=== PATIENT | female | born 1960 | race Caucasian/White ===

== ENCOUNTER 2023-04-22 00:14 | Emergency (ER) | payer BC ==
--- OUTSIDE RECORDS SUMMARY | 2023-04-22 00:17 | XMS REPORT | Continuity of Care Document ---
:1960 Author Organization [facility] t Address [address] [place] [address] Care Team Providers Name Role Phone LEDA HADDAD Attending Clinician Unavailable Payers Payer Name Policy Type Policy Number Effective Date Expiration Date S dahiana BLUE [employer]ENTIALS [id number] 2020 00:00:00 Problems This patient has no known problems. Allergies, Adverse Reactions, Alerts Allergy Allergy Status Severity Reaction(s) Onset Inactive Treating Comm ents Source Name Type Date Date Clinician NO KNOWN Drug Active [facility] ALLERGIE Class ity [facility] Medications This patient has no known medications. Procedures This patient has no known procedures. Encounters Start End Encounter Admission Attending Care Care Encounter Source Date/Time Date/Time Type Type Clinicians Facility Department ID 2020-11-02 2020-11-02 Outpatient Ronny HADDAD [facility] [id number] Univers 15:10:00 15:10:00 LEDA [id number] [facility] 2020-11-02 2020-11-02 Outpatient Ronny HADDAD [facility] [id number] Univers 15:10:00 15:10:00 LEDA [facility] 2020-10-26 2020-10-26 Outpatient R BOO [facility] [id number] Univers 15:10:00 15:10:00 LEDA [id number] [facility] 2020-10-25 2020-10-25 Outpatient Ronny HADDAD [facility] [id number] Univers 16:10:00 16:10:00 LEDA [id number] [facility] 2020-10-23 2020-10-23 Outpatient R BOO [facility] [id number] Univers 16:20:00 16:20:00 LEDA [id number] [facility] 2020-10-02 2020-10-02 Outpatient Ronny HADDAD [facility] [id number] Univers 14:30:00 14:30:00 LEDA [id number] [facility] 2020-10-02 2020-10-02 Outpatient Rnony HADDAD [facility] [id number] Univers 14:30:00 14:30:00 LEDA [facility] Results This patient has no known results.
[2023-04-22] MEDS ORDERED: HYDROCODONE/APAP 7.5/325 MG TAB ONE (01:50)
[2023-04-22] MEDS ORDERED: TDAP (DIPHTH,PERTUSS(ACELL),TET VAC) 0.5 ML VIAL IMVAC ONE (01:52)
--- NOTE | 2023-04-22 01:54 | EDPHYS ---
Physician Documentation [facility] Name: Chata Brar Age: 62 yrs Sex: Female : 1960 Arrival Date: 04/22/2023 Time: 00:14 Bed 15 Private MD: ED Physician Miky Sexton HPI: 04/22 01:41 This 62 yrs old Female presents to ER via Ambulatory with complaints of Laceration To kb Head. 01:41 The patient has a laceration related to: falling occurred at home. The laceration(s) kb is(are) located on the occipital area. 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 Associated signs and symptoms: Pertinent positives: heavy bleeding, Pertinent negatives: deformity, dizziness, loss of consciousness, numbness distal to injury, suspected foreign body. The patient has not experienced similar symptoms in the past. The patient has not recently seen a physician. Pt reports she was standing on a chair trying to remove a cobbwebb from the ceiling, fell and hit head on a chair. Denies loc. Historical: - Allergies: 00:37 No Known Allergies; vc1 - Home Meds: 01:08 alprazolam 0.5 mg Oral tablet 3 times per day [Active]; escitalopram oxalate 20 mg oral lg3 tablet daily [Active]; valsartan 320 mg oral tablet daily [Active]; carvedilol 25 mg oral tablet 2 times per day [Active]; metformin 500 mg Oral tablet 2 times per day [Active]; - PMHx: 01:08 HTN; Anxiety; pre diabetes; lg3 - PSHx: 01:08 section; Ligation of fallopian tube; lg3 - Immunization history:: Adult Immunizations up to date, Client reports receiving the 2nd dose of the Covid vaccine. - Social history:: Smoking status: Patient reports the use of cigarette tobacco products, smokes one-half pack cigarettes per day, Patient/guardian denies using alcohol, street drugs. ROS: 01:38 Constitutional: Negative for fever, chills, and weight loss. kb 01:38 Skin: Positive for laceration(s), of the occipital area. 01:38 All other systems are negative. Exam: 01:38 Constitutional: This is a well developed, well nourished patient who is awake, alert, kb and in no acute distress. Eyes: Pupils equal round and reactive to light, extra-ocular motions intact. Lids and lashes normal. Conjunctiva and sclera are non-icteric and not injected. Cornea within normal limits. Periorbital areas with no swelling, redness, or edema. ENT: Moist Mucous membranes Cardiovascular: Regular rate and rhythm with a normal S1 and S2. No gallops, murmurs, or rubs. No pulse deficits. Respiratory: Respirations even and unlabored. No increased work of breathing. Talking in full sentences Skin: Warm, dry with normal turgor. Normal color. MS/ Extremity: Pulses equal, no cyanosis. Neurovascular intact. Full, normal range of motion. Neuro: Awake and alert, GCS 15, oriented to person, place, time, and situation. Moves all extremities. Normal gait. 01:38 Head/face: Noted is no obvious of injury or deformity except a laceration(s), that is superficial, 5 cm(s), of the occipital area. Vital Signs: 00:33 BP 189 / 135; Pulse 88; Resp 19 S; Temp 98.5(O); Pulse Ox 98% on R/A; Weight 99.79 kg vc1 (R); Height 5 ft. 8 in. (R); 00:33 Weight 99.79 kg; Height 5 ft. 8 in. ; Pain 10/10; vc1 01:16 BP 163 / 94; Pulse 80; Resp 19 S; Pulse Ox 99% on R/A; lg3 00:33 Body Mass Index 33.45 (99.79 kg, 172.72 cm) vc1 00:33 Pain Scale: Adult vc1 Laceration: 01:40 Wound Repair of 5cm ( 2.0in ) subcutaneous laceration to occipital area. Linear kb shaped.. Distal neuro/vascular/tendon intact. Anesthesia: Wound infiltrated with 10 mls of 1% lidocaine w/ Epi. Wound prep: Extensive cleansing with hibiclenz by me, Wound irrigation with saline by me. Skin closed with 9 3-0 Prolene using simple sutures and sterile technique. Patient tolerated well. MDM: 00:22 Patient medically screened. kb 01:40 Data reviewed: vital signs, nurses notes. kb 01:41 Differential diagnosis: superficial laceration, tendon injury, vascular injury, ICH, kb concussion. Counseling: I had a detailed discussion with the patient and/or guardian regarding: the historical points, exam findings, and any diagnostic results supporting the discharge/admit diagnosis, radiology results, the need for outpatient follow up, a family practitioner, to return to the emergency department if symptoms worsen or persist or if there are any questions or concerns that arise at home. 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 lg3 Exp: 09/24/2023. Lot #: [id number]. } Route: IM; Site: right deltoid; 01:46 Follow up: Response: (VIS) Vaccine information sheet provided today. Questions and/or lg3 concerns addressed. VIS edition date: Apr 12, 2021.; No adverse reaction 01:45 Drug: Hydrocodone-Acetaminophen PO (7.5 mg-325 mg) 1 tabs Route: PO; lg3 Disposition: 03:00 Co-signature as Attending Physician, Miky Sexton MD I agree with the assessment sp4 and plan of care. I reviewed the patient's care provided by Advanced Practice Provider \T\ agree w/ the diagnosis \T\ care plan. I personally saw the pt \T\ performed a substantive portion of the visit, incldng all aspects of the (History/Exam/Medical Decision Making). Disposition Summary: 04/22/23 01:54 Discharge Ordered Location: Home kb Condition: Stable kb Diagnosis - Unspecified injury of head, initial encounter kb - Laceration without foreign body of unspecified part of head kb Followup: kb - With: Emergency Department - When: As needed - Reason: Worsening of condition Followup: kb - With: Private Physician - When: 2 - 3 days - Reason: Recheck today's complaints, Continuance of care, Re-evaluation by your physician Discharge Instructions: - Discharge Summary Sheet kb - Laceration Care, Adult, [id number] kb - Head Injury, Adult, [id number] kb Forms: - Medication Reconciliation Form kb - Thank You Letter kb - Antibiotic Education kb - Prescription Opioid Use kb - Patient Portal Instructions kb - Leadership Thank You Letter kb Signatures: Dispatcher [employer] ED Keith Theresa, CLIENT PROFESSIONAL-C CLIENT PROFESSIONAL-Isaura Ferreira RN RN lg3 Adeola Briones RN RN vc1 Miky Sexton MD MD sp4 Corrections: (The following items were deleted from the chart) 00:37 00:37 Home Meds: None; vc1 vc1 01:12 01:00 Immunization history: Adult Immunizations up to date, Client reports receiving lg3 the 2nd dose of the Covid vaccine, lg3 01:12 01:00 Social history: Smoking status: Patient reports the use of cigarette tobacco lg3 products, smokes one-half pack cigarettes per day, Patient/guardian denies using alcohol, street drugs, lg3
--- NOTE | 2023-04-22 01:54 | ER ---
Nurse's Notes [facility] Name: Chata Brar Age: 62 yrs Sex: Female : 1960 Arrival Date: 04/22/2023 Time: 00:14 Bed 15 Private MD: Diagnosis: Unspecified injury of head, initial encounter;Laceration without foreign body of unspecified part of head Presentation: 04/22 00:33 Chief complaint: Patient states: I was standing on a chair trying to dust the vent and vc1 I fell backwards and hit my head on the table. Coronavirus screen: Vaccine status: Patient reports receiving the 2nd dose of the covid vaccine. Plus 2 boosters Client denies travel out of the [place] in the last 14 days. At this time, the client does not indicate any symptoms associated with coronavirus-19. 00:33 Method Of Arrival: Ambulatory vc1 00:33 Acuity: SUE 3 vc1 00:33 Acuity: SUE 2 vc1 00:33 Ebola Screen: Patient negative for fever greater than or equal to 101.5 degrees vc1 Fahrenheit, and additional compatible Ebola Virus Disease symptoms Patient denies exposure to infectious person. Patient denies travel to an Ebola-affected area in the 21 days before illness onset. Complicating Factors: There are no complicating factors for this patient. Initial Sepsis Screen:. Risk Assessment: Do you want to hurt yourself or someone else? Patient reports no desire to harm self or others. Onset of symptoms was April 22, 2023. 00:33 Ebola Screen: No symptoms or risks identified at this time. Complicating Factors: lg3 arterial bleed. Initial Sepsis Screen: Does the patient meet any 2 criteria? No. Patient's initial sepsis screen is negative. Does the patient have a suspected source of infection? No. Patient's initial sepsis screen is negative. Risk Assessment: Do you want to hurt yourself or someone else? Patient reports no desire to harm self or others. Onset of symptoms was April 22, 2023. Triage Assessment: 00:33 General: Appears distressed, uncomfortable, Behavior is calm, cooperative. Pain: lg3 Complains of pain in scalp Pain currently is 5 out of 10 on a pain scale. EENT: No deficits noted. No signs and/or symptoms were reported regarding the EENT system. Neuro: No deficits noted. Garcia Agitation-Sedation Scale (RASS): 0 - Alert and Calm Level of Consciousness is awake, alert, obeys commands, Oriented to person, place, time, situation, Reports headache. Respiratory: No deficits noted. Airway is patent Respiratory effort is even, unlabored, Respiratory pattern is regular, symmetrical. GI: No deficits noted. No signs and/or symptoms were reported involving the gastrointestinal system. Abdomen is round non-distended, obese. : No deficits noted. No signs and/or symptoms were reported regarding the genitourinary system. Derm: Skin is intact, is healthy with good turgor, Skin is dry, Skin is normal, Wound noted scalp. Musculoskeletal: No deficits noted. No signs and/or symptoms reported regarding the musculoskeletal system. Circulation, motion, and sensation intact. Range of motion: intact in all extremities. Injury Description: Laceration sustained to scalp is clean, 2.6 to 7.5 cm long, bleeding profusely, with pulsatile bleeding, is bleeding profusely. 00:33 Cardiovascular: No deficits noted. Denies chest pain, shortness of breath, Capillary lg3 refill < 3 seconds Clubbing of nail beds is absent JVD is absent Patient's skin is warm and dry. Historical: - Allergies: 00:37 No Known Allergies; vc1 - Home Meds: 01:08 alprazolam 0.5 mg Oral tablet 3 times per day [Active]; escitalopram oxalate 20 mg oral lg3 tablet daily [Active]; valsartan 320 mg oral tablet daily [Active]; carvedilol 25 mg oral tablet 2 times per day [Active]; metformin 500 mg Oral tablet 2 times per day [Active]; - PMHx: 01:08 HTN; Anxiety; pre diabetes; lg3 - PSHx: 01:08 section; Ligation of fallopian tube; lg3 - Immunization history:: Adult Immunizations up to date, Client reports receiving the 2nd dose of the Covid vaccine. - Social history:: Smoking status: Patient reports the use of cigarette tobacco products, smokes one-half pack cigarettes per day, Patient/guardian denies using alcohol, street drugs. Screenin:25 [facility] ED Fall Risk Assessment (Adult) History of falling in the last 3 months, vc1 including since admission Yes- single mechanical fall (1 pt) Confusion or Disorientation No (0 pts) Intoxicated or Sedated No (0 pts) Impaired Gait No (0 pts) Mobility Assist Device Used No (0 pt) Altered Elimination No (0 pt) Score/Fall Risk Level 0 - 2 = Low Risk Oriented to surroundings, Maintained a safe environment, Educated pt \T\ family on fall prevention, incl call for assistance when getting out of bed. Abuse screen: Denies threats or abuse. Nutritional screening: No deficits noted. Tuberculosis screening: No symptoms or risk factors identified. Assessment: 01:04 General: see triage assessment . lg3 01:07 General: pt to CT at this time . lg3 01:13 Reassessment: Patient appears in no apparent distress at this time. Patient states lg3 feeling better. Patient states symptoms have improved. Pain: Complains of pain in scalp. Neuro: No deficits noted. Garcia Agitation-Sedation Scale (RASS): 0 - Alert and Calm Level of Consciousness is awake, alert, obeys commands, Oriented to person, place, time, situation. Vital Signs: 00:33 BP 189 / 135; Pulse 88; Resp 19 S; Temp 98.5(O); Pulse Ox 98% on R/A; Weight 99.79 kg vc1 (R); Height 5 ft. 8 in. (R); 00:33 Weight 99.79 kg; Height 5 ft. 8 in. ; Pain 10/10; vc1 01:16 BP 163 / 94; Pulse 80; Resp 19 S; Pulse Ox 99% on R/A; lg3 00:33 Body Mass Index 33.45 (99.79 kg, 172.72 cm) vc1 00:33 Pain Scale: Adult vc1 ED Course: 00:22 Patient arrived in ED. kb 00:22 Theresa Parker FNP-C is PHCP. kb 00:22 Miky Sexton MD is Attending Physician. kb 00:33 Arm band placed on left wrist. vc1 00:33 Patient has correct armband on for positive identification. Placed in gown. Bed in low vc1 position. 00:56 Isaura Brewer, VERONICA is Primary Nurse. lg3 01:02 Triage completed. lg3 01:04 Assist provider with laceration repair on scalp that was between 2.6 to 7.5 cm using lg3 sutures. Set up tray. Performed by Theresa CASTILLO Patient tolerated well. Patient maintains SpO2 saturation greater than 95% on room air. 01:20 CT Head C Spine In Process Unspecified. EDMS 02:13 Provided Education on: suture care. vc1 02:13 Patient did not have IV access during this emergency room visit. 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 lg3 Exp: 09/24/2023. Lot #: [id number]. } Route: IM; Site: right deltoid; 01:46 Follow up: Response: (VIS) Vaccine information sheet provided today. Questions and/or lg3 concerns addressed. VIS edition date: Apr 12, 2021.; No adverse reaction 01:45 Drug: Hydrocodone-Acetaminophen PO (7.5 mg-325 mg) 1 tabs Route: PO; lg3 Medication: 01:46 Vaccine Information Statement (VIS) provided today. Questions and/or concerns lg3 addressed. VIS edition date: April 12, 2021. Outcome: 01:54 Discharge ordered by . mickey 02:11 Discharged to home ambulatory. vc1 02:11 Condition: good 02:11 Discharge instructions given to patient, Instructed on discharge instructions, follow up and referral plans. wound care, Demonstrated understanding of instructions, follow-up care, wound care. 02:14 Patient left the ED. vc1 Signatures: Dispatcher [employer] EDWY Theresa Parker FNP-C FNP-Isaura Ferreira RN RN lg3 Adeola Briones RN RN vc1 Corrections: (The following items were deleted from the chart) 00:37 00:37 Home Meds: None; vc1 vc1 01:03 01:00 BP 189 / 135; Pulse 88bpm; Resp 19bpm; Spontaneous; Pulse Ox 98% RA; Temp 98.5F vc1 Oral; 99.79 kg Reported; Height 5 ft. 8 in. Reported; BMI: 33.4; lg3 : 01:00 Acuity: SUE 3 lg3 vc1 01:07 01:00 Ebola Screen: No symptoms or risks identified at this time. lg3 lg3 Complicating Factors: arterial bleed lg3 lg3 : Initial Sepsis Screen: Does the patient meet any 2 criteria? No. Patient's lg3 initial sepsis screen is negative. Does the patient have a suspected source of infection? No. Patient's initial sepsis screen is negative. lg3 : Risk Assessment: Do you want to hurt yourself or someone else? Patient reports no lg3 desire to harm self or others. lg3 : Onset of symptoms was April 22, 2023 lg3 lg3 : Immunization history: Adult Immunizations up to date, Client reports receiving lg3 the 2nd dose of the Covid vaccine, lg3 Social history: Smoking status: Patient reports the use of cigarette tobacco lg3 products, smokes one-half pack cigarettes per day, Patient/guardian denies using alcohol, street drugs, lg3 : General: Appears distressed, uncomfortable, Behavior is calm, cooperative, lg3 lg3 : Pain: Complains of pain in scalp Pain currently is 5 out of 10 on a pain scale. lg3 lg3 : EENT: No deficits noted. No signs and/or symptoms were reported regarding the lg3 EENT system. lg3 : Neuro: No deficits noted. Garcia Agitation-Sedation Scale (RASS): 0 - Alert and lg3 Calm Level of Consciousness is awake, alert, obeys commands, Oriented to person, place, time, situation, Reports headache lg3 : Cardiovascular: No deficits noted. Denies chest pain, shortness of breath, lg3 Capillary refill < 3 seconds Clubbing of nail beds is absent JVD is absent Patient's skin is warm and dry. lg3 : Respiratory: No deficits noted. Airway is patent Respiratory effort is even, lg3 unlabored, Respiratory pattern is regular, symmetrical, lg3 GI: No deficits noted. No signs and/or symptoms were reported involving the lg3 gastrointestinal system. Abdomen is round non-distended, obese, lg3 : : No deficits noted. No signs and/or symptoms were reported regarding the lg3 genitourinary system. lg3 : Derm: Skin is intact, is healthy with good turgor, Skin is dry, Skin is normal, lg3 Wound noted scalp lg3 :00 Musculoskeletal: No deficits noted. No signs and/or symptoms reported regarding lg3 the musculoskeletal system. Circulation, motion, and sensation intact. Range of motion: intact in all extremities, lg3 : Injury Description: Laceration sustained to scalp is clean, 2.6 to 7.5 cm long, lg3 bleeding profusely, with pulsatile bleeding, is bleeding profusely lg3
[2023-04-22 02:29] VITALS: TEMP 98.5
[2023-04-22 02:31] VITALS: BP 163/94; O2SAT 99
--- NOTE | 2023-04-22 12:10 | RAD REPORT ---
EXAM DESCRIPTION: CT - Head C Spine Mpr Wo Con - 04/22/2023 7:07 am CLINICAL HISTORY: TRAUMA TECHNIQUE: Contiguous axial CT images obtained through the brain without IV contrast. Coronal and sa gittal reformatted images were provided. This exam was performed according to our departmental dose-optimization program, which includes autom ated exposure control, adjustment of the mA and/or kV according to patient size and/or use of iterati ve reconstruction technique. COMPARISON: None available for comparison FINDINGS: Brain: Mild chronic white matter ischemic changes.. No focal mass effect. Shine-white matte r differentiation is within normal limits. No hemorrhage. Ventricles: No ventriculomegaly or midline shift. Extra-axial spaces: No extra-axial collection or hemorrhage. Paranasal sinuses and mastoid air cells: Well-aerated Bones: Unremarkable Soft tissues: Small posterior scalp hematoma and subcutaneous air likely secondary to laceration. IMPRESSION: No acute intracranial injury. Small posterior scalp hematoma and subcutaneous air likely secondary to laceration. EXAM DESCRIPTION: Head C Spine Mpr Wo Con CLINICAL HISTORY: TRAUMA TECHNIQUE: Contiguous axial CT images obtained through the cervical spine without IV contrast. Cor onal and sagittal reformatted images also provided. This exam was performed according to our departmental dose-optimization program, which includes autom ated exposure control, adjustment of the mA and/or kV according to patient size and/or use of iterati ve reconstruction technique. COMPARISON: None available for comparison FINDINGS: Vertebra: No acute fracture or subluxation. Degenerative changes: Degenerative changes of the cervical spine with facet joint arthropathy, mild n arrowing of intervertebral disc spaces, small disc osteophyte complexes and anterior osteophytes. Prevertebral soft tissues: Unremarkable Lung apices: Clear IMPRESSION: No acute cervical spine injury. Degenerative changes of the cervical spine. Electronically signed by: Angelito Valentin MD 04/22/2023 1:50 AM CDT Due to temporary technical issues with the PACS/Fluency reporting system, reports are being signed by the in house radiologist without review as a courtesy to ensure prompt reporting. The interpreting r adiologist is fully responsible for the content of the report.
== END 2023-04-22 02:14 | disposition home or self-care (01) ==
LOC: ER 00:14
PROC: 0HQ1XZZ Repair Face Skin, External Approach (ICD-10-PCS; principal; 2023-04-22)
DX: S01.81XA Laceration without foreign body of other part of head, initial encounter (principal); Z23 Encounter for immunization
CPT/HCPCS: 70450; 72125

== ENCOUNTER 2023-09-02 17:28 | Inpatient (IN) | payer BC ==
--- OUTSIDE RECORDS SUMMARY | 2023-09-02 17:30 | XMS REPORT | Continuity of Care Document ---
Author Name Unknown Address [address] [place] [address] 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 Role Phone LEDA HADDAD Attending Clinician Unavailable Payers Payer Name Policy Type Policy Number Effective Date Expirati on Date Source BLUE ESSENTIALS [id number] 2020 00:00:00 Allergies, Adverse Reactions, Alerts Allergy Name Allergy Type Status Severity Reaction(s) Onset Date Inactive Date Treating Clinician Comments Source NO KNOWN ALLERGIE S Drug Class Active [facility] Encounters Start Date/Time End Date/Time Encounter Type Admission Type Attending Clinicians Care Facility Care Department Encounter ID Source 2020-11-02 15:10:00 2020-11-02 15:10:00 Outpatient LEDA [facility] [id number] [facility] 2020-11-02 15:10:00 2020-11-02 15:10:00 Outpatient LEDA [facility] [id number] [facility] 2020-10-26 15:10:00 2020-10-26 15:10:00 Outpatient LEDA [facility] [id number] [facility] 2020-10-25 16:10:00 2020-10-25 16:10:00 Outpatient LEDA [facility] [id number] [facility] 2020-10-23 16:20:00 2020-10-23 16:20:00 Outpatient LEDA [facility] [id number] [facility] 2020-10-02 14:30:00 2020-10-02 14:30:00 Outpatient LEDA [facility] [id number] [facility] 2020-10-02 14:30:00 2020-10-02 14:30:00 Outpatient LEDA [facility] [id number] [facility]
[2023-09-02] MEDS ORDERED: NA CHLORIDE 0.9% 1,000 ML ONE ×3 (17:42→21:16)
[2023-09-02 18:04] LABS: Absolute Lymphocytes (CBC) 1.7 K/uL (0.7-4.9); Hematocrit 49.8 % (36.0-45.0); Lymphocytes % 14.7 % (15.3-44.8); MCV 90.5 fL (80-100); MPV 12.1 fL (7.6-11.3); Platelets 170 thou/uL (152-406)
--- NOTE | 2023-09-02 18:47 | RAD REPORT ---
EXAM DESCRIPTION: RAD - Chest Single View - 09/02/2023 6:40 pm CLINICAL HISTORY: PALPITATIONS Chest pain. COMPARISON: Chest Single View dated 08/25/2023; Chest Single View dated 08/21/2023 FINDINGS: Portable technique limits examination quality. The lungs are grossly clear. The heart is normal in size. No displaced fractures. IMPRESSION: No acute intrathoracic process suspected.
[2023-09-02 19:14] LABS: SARS-COV-2 RT PCR NEGATIVE (NEGATIVE)
[2023-09-02 19:33] LABS: Potassium 4.1 mEq/L (3.5-5.1); Thyroid Stimulating Hormone 3.46 uIU/mL (0.358-3.740)
[2023-09-02 19:38] LABS: Troponin High Sensitivity 61.8 pg/mL (<58.9)
--- NOTE | 2023-09-02 19:45 | EDPHYS ---
Physician Documentation [facility] Name: Chata Brar Age: 62 yrs Sex: Female : 1960 Arrival Date: 09/02/2023 Time: 17:28 Bed 4 Private MD: ED Physician Andre Cardenas HPI: 09/02 17:30 This 62 yrs old Female presents to ER via Unassigned with complaints of ec2 weakness, sob, afib. 17:30 Patient arrives today for evaluation of weakness and shortness of breath. Patient is ec2 having worsening shortness of breath, has a recent diagnosis of pneumonia. Patient had subsequently called EMS due to concern for progression of symptoms. EMS had evaluated the patient and noted her to be in A-fib with heart rates in the 140s, subsequently gave her diltiazem with improvement in symptoms. Initially was hypotensive and since improved after crystalloid administration.. Historical: - Allergies: 17:38 No Known Allergies; ph - Home Meds: 17:38 alprazolam 0.5 mg Oral tablet 3 times per day [Active]; carvedilol 25 mg Oral tablet 2 ph times per day [Active]; escitalopram oxalate 20 mg Oral tablet daily [Active]; metformin 500 mg Oral tablet 2 times per day [Active]; valsartan 320 mg Oral tablet daily [Active]; - PMHx: 17:38 Anxiety; HTN; Pre Diabetes; ph - PSHx: 17:38 section; Ligation of fallopian tube; ph - Immunization history:: Adult Immunizations unknown. - Social history:: Smoking status: Patient denies any tobacco usage or history of. ROS: 17:30 Constitutional: as per hpi ec2 Exam: 17:30 Constitutional: GEN: NAD Head: atraumatic Eyes: EOMI Ears: External ears are ec2 normal. CV: Intermittently tachycardic LUNGS: no respiratory distress, no wheezes, no rales, no rhonchi ABD: non-distended SKIN: no evidence of rashes MSK: no evidence of trauma NEURO: moves all extremities equally Vital Signs: 17:33 BP 88 / 41; Pulse 101; Resp 18; Temp 97.8; Pulse Ox 94% on R/A; ph 18:15 BP 105 / 52; Pulse 87; Resp 18; Pulse Ox 99% on 2 lpm NC; ph 18:30 BP 80 / 60; Pulse 98; Resp 20; Pulse Ox 98% on 2 lpm NC; ph 18:52 BP 90 / 48; Pulse 98; Resp 18; Pulse Ox 98% on 2 lpm NC; ph 19:25 BP 99 / 51; Pulse 104; Resp 17 S; Pulse Ox 98% on 2 lpm NC; ha1 19:46 BP 109 / 46; Pulse 83; ec2 20:00 BP 106 / 64; Pulse 102; Resp 18 S; Pulse Ox 99% on 2 lpm NC; ha1 20:50 BP 98 / 52; Pulse 99; Resp 18 S; Pulse Ox 98% on 2 lpm NC; ha1 21:15 BP 104 / 62; Pulse 102; Resp 17 S; Pulse Ox 97% on 2 lpm NC; ha1 21:15 BP 112 / 58; Pulse 103; Resp 17 S; Pulse Ox 98% on 2 lpm NC; ha1 MDM: 17:29 Patient medically screened. ec2 17:30 Data reviewed: vital signs. ED course: Patient arrives today due to concern for ec2 weakness, shortness of breath as well as atrial fibrillation. Examination remarkable for nontoxic but is otherwise in no acute distress with bouts of tachycardia secondary to her A-fib. Will obtain lab work, EKG, chest x-ray. Currently considering process such as electrolyte disturbances, arrhythmia, anemia, ACS.. 18:47 ED course: EKG independently reviewed and interpreted by me, shows atrial flutter, rate ec2 103 with variable conduction, no acute ST segment elevations, intervals are pertinent for QTc prolongation at 521 documented.. 19:17 ED course: Chest x-ray shows no acute thoracic process.. ec2 19:41 ED course: Metabolic profile with appropriate electrolytes, diminished renal function ec2 noted. Does have BNP elevation at greater than 7000. Troponin elevated at 61. Negative for COVID, does have influenza A. Will treat with Tamiflu. Will admit for patient's atrial fibrillation and influenza. Discussed case with hospitalist, pending admission. . 09/02 17:30 Order name: Basic Metabolic Panel; Complete Time: 19:40 ec2 09/02 17:30 Order name: CBC with Diff ec2 09/02 17:30 Order name: NT PRO-BNP; Complete Time: 19:40 ec2 09/02 17:30 Order name: Troponin HS; Complete Time: 19:40 ec2 09/02 17:30 Order name: TSH; Complete Time: 19:40 ec2 09/02 17:30 Order name: T4 Free; Complete Time: 19:40 ec2 09/02 17:30 Order name: COVID-19/FLU A+B/RSV; Complete Time: 19:41 ec2 09/02 18:13 Order name: CBC Smear Scan EDWI 09/02 20:44 Order name: NT PRO-BNP [facility]WI 09/02 20:44 Order name: Thyroid Stimulating Hormone [facility] 09/02 20:44 Order name: CBC with Automated Diff EDMS 09/02 20:44 Order name: CBC with Automated Diff EDMS 09/02 20:44 Order name: Comprehensive Metabolic Panel [facility] 09/02 20:44 Order name: Comprehensive Metabolic Panel [facility] 09/02 20:44 Order name: Lipid Profile [facility] 09/02 20:44 Order name: Lipid Profile [facility] 09/02 20:44 Order name: Magnesium [facility] 09/02 20:44 Order name: Magnesium [facility] 09/02 20:44 Order name: Phosphorus [facility] 09/02 20:44 Order name: Phosphorus [facility] 09/02 20:44 Order name: Troponin High Sensitivity [facility] 09/02 20:44 Order name: Troponin High Sensitivity [facility] 09/02 20:44 Order name: Troponin High Sensitivity [facility] 09/02 20:44 Order name: Urinalysis w/ reflexes [facility] 09/02 21:23 Order name: Glucose, Ancillary Testing [facility] 09/02 17:30 Order name: XRAY Chest (1 view); Complete Time: 19:17 2 09/02 17:30 Order name: EKG; Complete Time: 17:30 2 09/02 20:44 Order name: CONS Physician Consult [facility] 09/02 20:45 Order name: Patient Safety Orders [facility] 09/02 17:30 Order name: Cardiac monitoring; Complete Time: 17:39 ec2 09/02 17:30 Order name: EKG - Nurse/Tech; Complete Time: 18:22 ec2 09/02 17:30 Order name: IV Saline Lock; Complete Time: 17:39 ec2 09/02 17:30 Order name: Labs collected and sent; Complete Time: 18:22 ec2 09/02 17:30 Order name: O2 Per Protocol; Complete Time: 17:39 ec2 09/02 17:30 Order name: O2 Sat Monitoring; Complete Time: 17:39 ec2 09/02 18:10 Order name: Labs - recollect needed: green-hemolyzed; Complete Time: 18:55 iw Administered Medications: 17:55 Drug: NS 0.9% IV 1000 ml IV at 1 bolus Per protocol; 1000 mL bolus Route: IV; Rate: 1 ph bolus; Site: right forearm; 19:10 Drug: NS 0.9% IV 1000 ml IV at 1 bolus Per protocol; 1000 mL bolus Route: IV; Rate: 1 ha1 bolus; Site: right forearm; 19:57 Drug: Oseltamivir PO 75 mg PO once Route: PO; ha1 Disposition Summary: 09/02/23 19:44 Hospitalization Ordered Notes: Hospitalization Status: Inpatient Admission ec2 Provider: Kyle Norton2 [facility] Condition: Stable ec2 Problem: an acute exacerbation ec2 Symptoms: have improved ec2 Bed/Room Type: Standard ec2 Room Assignment: [facility](09/02/23 21:27) [facility] Diagnosis - Influenza due to identified novel influenza A virus ec2 - Paroxysmal atrial fibrillation ec2 Forms: - Medication Reconciliation Form ec2 - SBAR form ec2 - Leadership Thank You Letter ec2 Signatures: Dispatcher [employer] Yudy Ford RN RN Raeann Light RN RN ph Ayala, Heidy, RN RN [facility] Andre Cardenas MD MD 2 Crista Mooney [facility] Corrections: (The following items were deleted from the chart) 19:44 ec2 [facility]
--- NOTE | 2023-09-02 19:45 | ER ---
Nurse's Notes [facility] Name: Chata Brar Age: 62 yrs Sex: Female : 1960 Arrival Date: 09/02/2023 Time: 17:28 Bed 4 Private MD: Diagnosis: Influenza due to identified novel influenza A virus;Paroxysmal atrial fibrillation Presentation: 09/02 17:33 Chief complaint: EMS states: Discharged from hospital on 08/31 after being admitted for ph pneumonia, called EMS today for weakness and difficulty breathing, found to be in a-fib w/ rate between 140-160, BP 80s systolic, IV established, 250 NS bolus and 10 mg cardizem given, rate down to 90s, pt denies hx of a-fib, has supplemental home o2. Coronavirus screen: Vaccine status: Patient reports receiving the 2nd dose of the covid vaccine. Ebola Screen: No symptoms or risks identified at this time. Initial Sepsis Screen: Does the patient meet any 2 criteria? Mean Arterial Pressure (MAP) < 65. HR > 90 bpm. Does the patient have a suspected source of infection? Yes: Productive cough/pneumonia. Risk Assessment: Do you want to hurt yourself or someone else? Patient reports no desire to harm self or others. Onset of symptoms was September 02, 2023. 17:33 Method Of Arrival: EMS: [facility] ph 17:33 Acuity: SUE 2 ph Historical: - Allergies: 17:38 No Known Allergies; ph - Home Meds: 17:38 alprazolam 0.5 mg Oral tablet 3 times per day [Active]; carvedilol 25 mg Oral tablet 2 ph times per day [Active]; escitalopram oxalate 20 mg Oral tablet daily [Active]; metformin 500 mg Oral tablet 2 times per day [Active]; valsartan 320 mg Oral tablet daily [Active]; - PMHx: 17:38 Anxiety; HTN; Pre Diabetes; ph - PSHx: 17:38 section; Ligation of fallopian tube; ph - Immunization history:: Adult Immunizations unknown. - Social history:: Smoking status: Patient denies any tobacco usage or history of. Screenin:53 [facility] ED Fall Risk Assessment (Adult) History of falling in the last 3 months, ph including since admission Yes- single mechanical fall (1 pt) Confusion or Disorientation No (0 pts) Intoxicated or Sedated No (0 pts) Impaired Gait No (0 pts) Mobility Assist Device Used No (0 pt) Altered Elimination No (0 pt) Score/Fall Risk Level 0 - 2 = Low Risk Oriented to surroundings, Maintained a safe environment, Provided non-skid footwear, Hourly rounding (assess needs \T\ fall precautionary measures) done. Abuse screen: Denies threats or abuse. Denies injuries from another. Nutritional screening: No deficits noted. Tuberculosis screening: No symptoms or risk factors identified. Assessment: 17:50 General: Appears in no apparent distress. uncomfortable, Behavior is cooperative, ph appropriate for age, anxious. Pain: Denies pain. Neuro: Level of Consciousness is awake, obeys commands, lethargic, Oriented to person, place, time, situation. Cardiovascular: Capillary refill < 3 seconds in bilateral fingers Patient's skin is warm and dry. Rhythm is atrial fibrillation. Respiratory: Reports cough that is Airway is patent Respiratory effort is even, unlabored. GI: Reports diarrhea, Patient currently denies abdominal pain. Derm: Skin is normal, Skin temperature is cool. Musculoskeletal: Circulation, motion, and sensation intact. Range of motion: intact in all extremities. 19:15 General: Appears uncomfortable, Behavior is cooperative. Pain: Complains of pain in ha1 headache Pain does not radiate. Pain currently is 5 out of 10 on a pain scale. Quality of pain is described as pressure. Neuro: Level of Consciousness is awake, alert, obeys commands, Oriented to person, place, time, situation. Cardiovascular: Patient's skin is warm and dry. Respiratory: Airway is patent Respiratory effort is even, unlabored, Respiratory pattern is regular, symmetrical. GI: No signs and/or symptoms were reported involving the gastrointestinal system. Abdomen is round non-distended. Derm: Skin is pale, Skin temperature is cool. Musculoskeletal: Circulation, motion, and sensation intact. 20:15 Reassessment: Patient and/or family updated on plan of care and expected duration. Pain ha1 level reassessed. Patient is alert, oriented x 3, equal unlabored respirations, skin warm/dry/pink. 21:15 Reassessment: Patient and/or family updated on plan of care and expected duration. Pain ha1 level reassessed. Patient is alert, oriented x 3, equal unlabored respirations, skin warm/dry/pink. 22:15 Reassessment: report given to VERONICA [facility] [place]. ha1 Vital Signs: 17:33 BP 88 / 41; Pulse 101; Resp 18; Temp 97.8; Pulse Ox 94% on R/A; ph 18:15 BP 105 / 52; Pulse 87; Resp 18; Pulse Ox 99% on 2 lpm NC; ph 18:30 BP 80 / 60; Pulse 98; Resp 20; Pulse Ox 98% on 2 lpm NC; ph 18:52 BP 90 / 48; Pulse 98; Resp 18; Pulse Ox 98% on 2 lpm NC; ph 19:25 BP 99 / 51; Pulse 104; Resp 17 S; Pulse Ox 98% on 2 lpm NC; ha1 19:46 BP 109 / 46; Pulse 83; ec2 20:00 BP 106 / 64; Pulse 102; Resp 18 S; Pulse Ox 99% on 2 lpm NC; ha1 20:50 BP 98 / 52; Pulse 99; Resp 18 S; Pulse Ox 98% on 2 lpm NC; ha1 21:15 BP 104 / 62; Pulse 102; Resp 17 S; Pulse Ox 97% on 2 lpm NC; ha1 21:15 BP 112 / 58; Pulse 103; Resp 17 S; Pulse Ox 98% on 2 lpm NC; ha1 ED Course: 17:29 Patient arrived in ED. [id number] 17:29 Andre Cardenas MD is Attending Physician. ec2 17:38 Triage completed. ph 18:11 Raeann Light RN is Primary Nurse. ph 18:42 XRAY Chest (1 view) In Process Unspecified. EDMS 18:54 Arm band placed on. ph 18:54 Patient has correct armband on for positive identification. Placed in gown. Bed in low ph position. Side rails up X2. Client placed on continuous cardiac and pulse oximetry monitoring. NIBP monitoring applied. 19:18 Maintain EMS IV. Dressing intact. Good blood return noted. Site clean \T\ dry. Gauge \T\ ph site: 20 R wrist. 19:44 Kyle Norton is Hospitalizing Provider. ec2 22:27 No provider procedures requiring assistance completed. Patient admitted, IV remains in rv place. Administered Medications: 17:55 Drug: NS 0.9% IV 1000 ml IV at 1 bolus Per protocol; 1000 mL bolus Route: IV; Rate: 1 ph bolus; Site: right forearm; 19:10 Drug: NS 0.9% IV 1000 ml IV at 1 bolus Per protocol; 1000 mL bolus Route: IV; Rate: 1 ha1 bolus; Site: right forearm; 19:57 Drug: Oseltamivir PO 75 mg PO once Route: PO; ha1 Medication: 18:54 VIS not applicable for this client. ph Outcome: 19:44 Decision to Hospitalize by Provider. ec2 22:07 Admitted to Tele accompanied by [facility], room 412, Report called to Saida Menjivar RN 22:28 Patient left the ED. rv Signatures: Dispatcher [employer] Brenda Nunes RN RN kl Hall, Patricia, RN RN ph Vicente, Ronaldo, RN RN rv Ayala, Heidy, RN RN [facility] Karissa Michael [facility] [place] Cardenas MD MD ec2 Corrections: (The following items were deleted from the chart) 21:52 19:25 BP 99 / 51; Pulse 104bpm; Resp 17bpm; Spontaneous; Pulse Ox 98% RA; ha1 ha1 21:52 20:00 BP 106 / 64; Pulse 102bpm; Resp 18bpm; Spontaneous; Pulse Ox 99% RA; ha1 ha1 21:52 20:50 BP 98 / 52; Pulse 99bpm; Resp 18bpm; Spontaneous; Pulse Ox 98% RA; ha1 ha1
[2023-09-02 19:54] LABS: Blood Morphology Comment NOT SEEN (NOT SEEN); Platelet Estimate ADEQ; White Blood Cell Scan OK (OK)
[2023-09-02] MEDS ORDERED: OSELTAMIVIR 75 MG CAP PO ONE (19:56)
--- NOTE | 2023-09-02 20:23 | P.HP ---
Certification for Inpatient Patient admitted to: Inpatient With expected LOS: <2 Midnights Patient will require the following post-hospital care: None Practitioner: I am a practitioner with admitting privileges, knowledge of patient current condition, hospital course, and medical plan of care. Services: Services provided to patient in accordance with Admission requirements found in Title 42 Section 412.3 of the Code of Federal Regulations Patient History Date of Service: 09/02/23 Primary Care Provider: Dr. Álvarez Reason for admission: Atrial fibrillation with RVR, Influenza History of Present Illness: Ms. Brar is a 62 yo discharged from [facility] on 08/31/23 s/p admission for pneumonia. Her Son called EMS today for increased weakness and palpitations. She was found to be influenza positive in ED with atrial fibrillation with rapid ventricular response in the 140's. She received 10mg Cardizem per EMS in route t o the ED. After two liters of normal saline in the emergency room, her HR is down to 100-110. She will be readmitted for influenza, atrial fibrillation with RVR, dehydration. Allergies No Known Allergies Allergy (Unverified 11/27/12 15:14) Home medications list reviewed: Yes Home Medications: ALPRAZolam [Xanax*] 0.5 mg PO TID 08/22/23 Carvedilol [Coreg] 25 mg PO BID 08/22/23 Escitalopram [Lexapro*] 20 mg PO DAILY 08/22/23 Mecobalamin [B12 Active] 1,000 mcg PO DAILY 08/22/23 Metformin ER [Glucophage ER*] 500 mg PO BID 08/22/23 Valsartan 320 mg PO DAILY 08/22/23 Mometasone/Formoterol [Dulera 200 Mcg/5 Mcg Inhaler] 2 puff IH BID #60 inhaler 08/31/23 hydroCHLOROthiazide [Hydrochlorothiazide] 25 mg PO DAILY 30 Days #30 tab 08/31/23 - Past Medical/Surgical History Diabetic: No -: anxiety -: atrial fibrillation -: hypertension -: COPD Psychosocial/ Personal History: Lives at home with her Son - Social History Smoking Status: Current some day smoker Smoking therapy provided: Yes (pt states she quit a couple of months ago) Alcohol use: No CD- Drugs: No Caffeine use: Yes Place of Residence: Home Review of Systems 10-point ROS is otherwise unremarkable General: Weakness, As per HPI Eyes: Unremarkable ENT: Nose Congestion Respiratory: Cough, Shortness of Breath, As per HPI Cardiovascular: Palpitations Gastrointestinal: Unremarkable Genitourinary: Unremarkable Musculoskeletal: Unremarkable Integumentary: Unremarkable Neurological: Weakness, As per HPI Physical Examination - Studies Laboratory Data (last 24 hrs) 09/02/23 09/02/23 18:43 17:55 WBC 11.90 H Hgb 15.7 H Hct 49.8 H Plt Count 170 Sodium 135 L Potassium 4.1 BUN 45 H Creatinine 1.56 H Glucose 252 H Assessment and Plan - Problems (Diagnosis) (1) Hypertension Current Visit: Yes Status: Acute Plan: Metoprolol 25mg po BID monitor electrolytes/replace as necessary Monitor vital signs (2) Influenza A Current Visit: Yes Status: Acute Plan: Tamiflu 75mg po BID x 5 days Fluid/electrolyte replacement Symtomatic treatment (3) Atrial fibrillation Current Visit: Yes Status: Acute Plan: Pt states she does not have a diagnosis of atrial fibrillation, but takes coreg. Will check previous admission. Rate control. Previous EKG 08/21/23 documented NSR at 97bpm, no previous available. PE protocol CT performed 08/25/23, negative Telemetry Dr. Ortiz recommends changing coreg to Metoprolol. Qualifiers: Atrial fibrillation type: unspecified Qualified Code(s): I48.91 - Unspecified atrial fibrillation - Advance Directives Does patient have a Living Will: No Does patient have a Durable POA for Healthcare: No - Code Status/Comfort Care Code Status Assessed: Yes (Full)
[2023-09-02] MEDS: NA CHLORIDE 0.9% 1,000 ML IV SCH (21:00)
[2023-09-02] MEDS: INSULIN REGULAR (HUMAN) 100 UNIT/ML SQ SCH (21:00)
[2023-09-02] MEDS: OSELTAMIVIR 75 MG CAP PO SCH (21:00)
[2023-09-02] MEDS ORDERED: HYDROCODONE/CHLORPHEN 5 ML/OSYR ONE (21:15)
[2023-09-02] MEDS ORDERED: INSULIN REGULAR (HUMAN) 100 UNIT/ML ONE (21:15)
[2023-09-02] MEDS: HYDROCODONE/CHLORPHEN 5 ML/OSYR PO PRN (21:23)
[2023-09-02 23:27] VITALS: BMI 33.1
[2023-09-03] MEDS: IPRATROPIUM BROM 0.5MG/2.5ML NEB SCH ×4 (01:25→20:34)
[2023-09-03] MEDS: METOPROLOL TAR 25 MG TAB PO SCH ×2 (05:48→18:23)
[2023-09-03] MEDS ORDERED: carvediloL 25 MG TAB PO SCH (06:00)
[2023-09-03] MEDS: INSULIN REGULAR (HUMAN) 100 UNIT/ML SQ SCH ×5 (07:30→21:45)
[2023-09-03 07:41] LABS: Absolute Lymphocytes (CBC) 1.8 K/uL (0.7-4.9); Hematocrit 45.9 % (36.0-45.0); Lymphocytes % 20.6 % (15.3-44.8); MCV 91.1 fL (80-100); MPV 11.2 fL (7.6-11.3); Platelets 139 thou/uL (152-406); RBC Red Blood Cell Count 5.03 M/uL (3.86-4.86)
[2023-09-03 07:55] LABS: Albumin 2.6 g/dL (3.4-5.0); Bilirubin Total 0.6 mg/dL (0.2-1.0); Magnesium 2.3 mg/dL (1.6-2.4); Protein, Total 5.7 g/dL (6.4-8.2)
[2023-09-03] MEDS: ARFORMOTEROL TARTRATE 15 MCG/2 ML VIAL.NEB NEB SCH ×2 (08:00→20:34)
--- NOTE | 2023-09-03 08:02 | P.HP ---
Certification for Inpatient With expected LOS: <2 Midnights Patient will require the following post-hospital care: None Practitioner: I am a practitioner with admitting privileges, knowledge of patient current condition, hospital course, and medical plan of care. Services: Services provided to patient in accordance with Admission requirements found in Title 42 Section 412.3 of the Code of Federal Regulations Patient History Date of Service: 09/03/23 Primary Care Provider: Dr. Álvarez Reason for admission: Atrial fibrillation with RVR, Influenza History of Present Illness: Ms. Brar is a 62 yo discharged from [facility] on 08/31/23 s/p admission for pneumonia. Her Son called EMS today for increased weakness and palpitations. She was found to be influenza positive in ED with atrial fibrillation with rapid ventricular response in the 140's. She received 10mg Cardizem per EMS in route to the ED. After two liters of normal saline in the emergency room, her HR is down to 100-110. She will be readmitted for influenza, atrial fibrillation with RVR, dehydration. Allergies No Known Allergies Allergy (Unverified 11/27/12 15:14) Home Medications: ALPRAZolam [Xanax*] 0.5 mg PO TID 08/22/23 Carvedilol [Coreg] 25 mg PO BID 08/22/23 Escitalopram [Lexapro*] 20 mg PO DAILY 08/22/23 Mecobalamin [B12 Active] 1,000 mcg PO DAILY 08/22/23 Metformin ER [Glucophage ER*] 500 mg PO BID 08/22/23 Valsartan 320 mg PO DAILY 08/22/23 Mometasone/Formoterol [Dulera 200 Mcg/5 Mcg Inhaler] 2 puff IH BID #60 inhaler 08/31/23 hydroCHLOROthiazide [Hydrochlorothiazide] 25 mg PO DAILY 30 Days #30 tab 08/31/23 - Past Medical/Surgical History Has patient received pneumonia vaccine in the past: No Diabetic: No -: anxiety -: atrial fibrillation -: hypertension -: COPD -: -: L cataract surgery Psychosocial/ Personal History: Lives at home with her Son - Social History Smoking Status: Former smoker Alcohol use: No CD- Drugs: No Caffeine use: Yes Place of Residence: Home Review of Systems 10-point ROS is otherwise unremarkable Respiratory: As per HPI Cardiovascular: As per HPI Physical Examination - Vital Signs Temperature: 96.7 F Blood Pressure: 112/60 Pulse: 77 Respirations: 17 Pulse Ox (%): 98 - Physical Exam General: In no apparent distress, Oriented x3 HEENT: Atraumatic, Normocephalic, PERRLA Neck: Supple, 2+ carotid pulse no bruit Respiratory: Normal air movement, Crackles/rales Cardiovascular: No edema Capillary refill: <2 Seconds Gastrointestinal: Normal bowel sounds, Soft and benign Musculoskeletal: No clubbing Integumentary: No rashes Neurological: Normal speech, Normal tone Lymphatics: No axilla or inguinal lymphadenopathy External genitalia: Deferred Rectal: Deferred - Studies Laboratory Data (last 24 hrs) 09/02/23 09/02/23 18:43 17:55 WBC 11.90 H Hgb 15.7 H Hct 49.8 H Plt Count 170 Sodium 135 L Potassium 4.1 BUN 45 H Creatinine 1.56 H Glucose 252 H Assessment and Plan - Problems (Diagnosis) (1) Atrial fibrillation Current Visit: Yes Status: Acute Plan: change carvedilol to metoprolol telemetry Qualifiers: Atrial fibrillation type: unspecified Qualified Code(s): I48.91 - Unspecified atrial fibrillation (2) Hypertension Current Visit: Yes Status: Acute Plan: continue current antihypertensives monitor vs (3) Shortness of breath Current Visit: No Status: Acute Plan: O2 prn spot check pulse oximetery - Advance Directives Does patient have a Living Will: No Does patient have a Durable POA for Healthcare: No
[2023-09-03 08:21] LABS: Platelet Estimate DECR; White Blood Cell Scan OK (OK)
[2023-09-03 08:22] LABS: Blood Morphology Comment NOT SEEN (NOT SEEN)
[2023-09-03] MEDS: NA CHLORIDE 0.9% 1,000 ML IV SCH (08:55)
[2023-09-03] MEDS: OSELTAMIVIR 75 MG CAP PO SCH ×2 (08:56→20:16)
[2023-09-03] MEDS: ENOXAPARIN 40 MG/0.4 ML SQ SCH (08:56)
[2023-09-03 12:14] LABS: Specific Gravity 1.027 (1.005-1.030); Urine Bacteria <20 /HPF (<20); Urine Bilirubin NEGATIVE (Negative); Urine Blood Trace (Negative); Urine Clarity Extremely Turbid (Clear); Urine Color Yellow (Yellow); Urine Glucose 2+ (Negative); Urine Mucus 1+ /HPF (None Seen); Urine Protein TRACE (Negative); Urine RBC <5 /HPF (None Seen); Urine Urobilinogen Normal (Normal); Urine pH 5.5 (5.0-7.0)
--- NOTE | 2023-09-03 13:20 | EKG ---
Test Date: 2023-09-02 Test Time: 18:04:19 [place] [employer]: PH MEASUREMENT RESULTS: Intervals: Rate: 103 MA: QRSD: 94 QT: 398 QTc: 521 [place]: P: MA: QRS: 60 T: 193 INTERPRETIVE STATEMENTS: Atrial fibrillation with rapid ventricular response ST & T wave abnormality, consider inferior ischemia Prolonged QT Abnormal ECG Compared to ECG 08/21/2023 09:07:19 ST (T wave) deviation now present Possible ischemia now present Prolonged QT interval now present Sinus rhythm no longer present Electronically Signed On 09-03-23 13:18:41 [employer] by Pio Ortiz
[2023-09-03] MEDS: ACETAMINOPHEN 325 MG TABLET PO PRN ×2 (13:54)
--- NOTE | 2023-09-03 14:01 | P.PN ---
Subjective Date of Service: 09/03/23 Primary Care Provider: Dr. Álvarez Chief Complaint: Atrial fibrillation with RVR, Influenza Re reports symptoms of rapid heart rate after using albuterol inhaler, denies history of CKD, congestive heart failure. Reports recent hospitalization for pneumonia, [facility] on 08/21/23 - 08/31/23 - Physical Exam General: In no apparent distress, Oriented x3 HEENT: Atraumatic, Normocephalic, PERRLA Neck: Supple, 2+ carotid pulse no bruit Respiratory: Normal air movement, Crackles/rales Cardiovascular: No edema Capillary refill: <2 Seconds Gastrointestinal: Normal bowel sounds, Soft and benign Musculoskeletal: No clubbing Integumentary: No rashes Neurological: Normal speech, Normal tone Lymphatics: No axilla or inguinal lymphadenopathy <Kadi Bloom - Last Filed: 09/03/23 16:22> Date of Service: 09/03/23 <Addi Hoskins - Last Filed: 09/03/23 20:26> Review of Systems Per HPI <Kadi Bloom - Last Filed: 09/03/23 16:22> Physical Examination - Vital Signs Temperature: 99.1 F Blood Pressure: 152/65 Pulse: 98 Respirations: 18 Pulse Ox (%): 96 - Studies Laboratory Data (last 24 hrs) 09/02/23 09/02/23 18:43 17:55 WBC 11.90 H Hgb 15.7 H Hct 49.8 H Plt Count 170 Sodium 135 L Potassium 4.1 BUN 45 H Creatinine 1.56 H Glucose 252 H <Kadi Bloom - Last Filed: 09/03/23 16:22> Assessment And Plan - Plan Assessment plan Influenza A acute Current Visit: Yes Status: Acute Plan: Tamiflu 75mg po BID x 5 days Fluid/electrolyte replacement Atrial fibrillation acute, Current Visit: Yes Status: Acute Plan: cardiology consulted, tele Pt states she does not have a diagnosis of atrial fibrillation, but takes coreg. Will check previous admission. Rate control. Previous EKG 08/21/23 documented NSR at 97bpm, no previous available. PE protocol CT performed 08/25/23, negative Telemetry Dr. Ortiz recommends changing coreg to Metoprolol. Qualifiers: Atrial fibrillation type: unspecified Qualified Code(s): I48.91 - Unspecified atrial fibrillation Emergency room EKG: EKG independently reviewed and interpreted by me, shows atrial flutter, rate 103 with variable conduction, no acute ST segment elev ations, intervals are pertinent for QTc prolongation at 521 documented, vital signs BP 88 / 41; Pulse 101; Resp 18; Temp 97.8; Pulse Ox 94% on R/A, was treated with Coreg 25 twice daily, 2 L normal saline cardiology consulted Elevated troponin Troponin 61 Trend troponin, telemetry Echo ordered Elevated BNP BNP 7665 Acute on chronic kidney injury unknown baseline BUN 45 creatinine 1.21 Renal consult Renal ultrasound, serum osmole, urine osmol, urine sodium ordered Hypokalemia Potassium 3.0 Trend electrolytes replace as needed Hypoalbuminemia Albumin 2.6 Hypertension chronic, controlled Current Visit: Yes Status: Acute Plan: Metoprolol 25mg po BID monitor electrolytes/replace as necessary Monitor vital signs Depression Anxiety resume appropriate home med Cardiac diet full code DVT Lovenox Disposition: Discharge Plan: Home Plan to discharge in: 48 Hours - Code Status/Comfort Care Code Status: Full Code Time Spent Managing PTS Care (In Minutes): 35 <Kadi Bloom - Last Filed: 09/03/23 16:22> Physician Review: Patient Assessed, Agree with Above Assessment and Plan Physician Review Additional Text: No issues overnight. She reports palpitations after albuterol. Per Cardiology, plan to switch carvedilol to metoprolol. Sotalol was discontinued due to prolonged QTc interval. Addi Hoskins M.D. <Addi Hoskins - Last Filed: 09/03/23 20:26>
[2023-09-03] MEDS ORDERED: POTASSIUM 25 MEQ EFFERV TAB PO ONE (14:31)
[2023-09-03] MEDS: ALPRAZOLAM 0.25 MG TABLET PO PRN ×3 (16:54→20:16)
[2023-09-03] MEDS ORDERED: SOTALOL HCL 80 MG TAB PO SCH (18:00)
[2023-09-03] MEDS: HYDROCODONE/CHLORPHEN 5 ML/OSYR PO PRN (21:30)
[2023-09-04] MEDS: ACETAMINOPHEN 325 MG TABLET PO PRN ×3 (00:39→17:25)
[2023-09-04] MEDS: ALPRAZOLAM 0.25 MG TABLET PO PRN ×2 (00:40→13:08)
[2023-09-04] MEDS: IPRATROPIUM BROM 0.5MG/2.5ML NEB SCH ×4 (01:45→18:21)
[2023-09-04] MEDS: METOPROLOL TAR 25 MG TAB PO SCH ×2 (05:45→17:25)
[2023-09-04 07:21] LABS: Absolute Lymphocytes (CBC) 1.8 K/uL (0.7-4.9); Lymphocytes % 18.8 % (15.3-44.8); MCV 90.1 fL (80-100); MPV 11.8 fL (7.6-11.3); Platelets 111 thou/uL (152-406); RBC Red Blood Cell Count 4.44 M/uL (3.86-4.86)
[2023-09-04] MEDS: ARFORMOTEROL TARTRATE 15 MCG/2 ML VIAL.NEB NEB SCH ×3 (07:23→19:02)
[2023-09-04] MEDS: INSULIN REGULAR (HUMAN) 100 UNIT/ML SQ SCH ×4 (07:30→21:00)
[2023-09-04 07:38] LABS: Albumin 2.5 g/dL (3.4-5.0); Bilirubin Total 0.6 mg/dL (0.2-1.0); Magnesium 2.2 mg/dL (1.6-2.4); Potassium 3.2 mEq/L (3.5-5.1); Protein, Total 5.5 g/dL (6.4-8.2)
--- NOTE | 2023-09-04 07:54 | RAD REPORT ---
EXAM DESCRIPTION: US - Renal Ultrasound-Complete - 09/03/2023 11:31 pm CLINICAL HISTORY: VERONICA, abn kidney function COMPARISON: No comparisons FINDINGS: Both kidneys are normal in size, shape and echotexture. The right kidney measures 11.5 x 5.2 x 4.9 cm. No hydronephrosis, focal mass or perinephric fluid. 2. 0 cm benign-appearing cyst. The left kidney measures 11.3 x 5.6 x 4.4 cm.. No hydronephrosis, focal mass or perinephric fluid. 3. 4 cm benign-appearing cyst. The urinary bladder is incompletely distended without gross abnormality seen. IMPRESSION: Benign appearing bilateral renal cysts, otherwise negative study
[2023-09-04] MEDS: ENOXAPARIN 40 MG/0.4 ML SQ SCH (08:43)
[2023-09-04] MEDS ORDERED: POTASSIUM 25 MEQ EFFERV TAB PO ONE (09:00)
--- NOTE | 2023-09-04 09:06 | P.PN ---
Subjective Date of Service: 09/04/23 <Addi Hoskins - Last Filed: 09/04/23 17:19> Date of Service: 09/04/23 Primary Care Provider: Dr. Álvarez Chief Complaint: Atrial fibrillation with RVR, Influenza reports mild anxiety, ativan prn added, denies history of CKD, congestive heart failure. - Physical Exam General: In no apparent distress, Oriented x3 HEENT: Atraumatic, Normocephalic, PERRLA Neck: Supple, 2+ carotid pulse no bruit Respiratory: Normal air movement, equal, unlabored, mild wheezes Cardiovascular: No edema Capillary refill: <2 Seconds Gastrointestinal: Normal bowel sounds, Soft and benign Musculoskeletal: No clubbing Integumentary: No rashes Neurological: Normal speech, Normal tone Lymphatics: No axilla or inguinal lymphadenopathy <MerleKadi - Last Filed: 09/04/23 18:49> Review of Systems per HPi <Kadi Bloom - Last Filed: 09/04/23 18:49> Physical Examination - Vital Signs Temperature: 97.3 F Blood Pressure: 127/61 Pulse: 69 Respirations: 18 Pulse Ox (%): 93 <Kadi Bloom Last Filed: 09/04/23 18:49> Assessment And Plan Physician Review: Patient Assessed, Agree with Above Assessment and Plan Physician Review Additional Text: She is doing much better this morning. Her QTc interval is borderline prolonged at 470 ms. Discussed with Cardiology, they are planning to repeat EKG and possibly start metoprolol based on QTc interval. Addi Hoskins M.D. <Addi Hoskins - Last Filed: 09/04/23 17:19> - Plan Assessment plan Influenza A acute Current Visit: Yes Status: Acute Plan: Tamiflu 75mg po BID x 5 days Fluid/electrolyte replacement leukocytosis improved WBC 11.90->8.90 +Influ A-Tamiflu UA 75 leukoesterase leukocytosis Atrial fibrillation acute, controlled Current Visit: Yes Status: Acute Plan: cardiology consulted, tele Pt states she does not have a diagnosis of atrial fibrillation, but takes coreg. Will check previous admission. Rate control. Previous EKG 08/21/23 documented NSR at 97bpm, no previous available. PE protocol CT performed 08/25/23, negative Telemetry Dr. Ortiz recommends changing coreg to Metoprolol. Qualifiers: Atrial fibrillation type: unspecified Qualified Code(s): I48.91 - Unspecified atrial fibrillation Emergency room EKG: EKG independently reviewed and interpreted by me, shows atrial flutter, rate 103 with variable conduction, no acute ST segment elevations, intervals are pertinent for QTc prolongation at 521 documented, vital signs BP 88 / 41; Pulse 101; Resp 18; Temp 97.8; Pulse Ox 94% on R/A, was treated with Coreg 25 twice daily, 2 L normal saline cardiology consulted Elevated troponin improving Troponin 61, Troponin 61.8->46.4->43.4->39. Trend troponin, telemetry Echo ordered Elevated BNP improving BNP 7665, BNP 7665->4192 Acute on chronic kidney injury unknown baseline-improving BUN 45 creatinine 1.21, VERONICA CKD BUN 45/1.56-> 45/1.21-> 27.0.79 Renal consult Renal ultrasound IMPRESSION: Benign appearing bilateral renal cysts, otherwise negative study serum osmole, urine osmol, urine sodium ordered Hypokalemia Potassium 3.0, K 3.0->3.2 Trend electrolytes replace as needed Hypoalbuminemia Albumin 2.6 Hypertension chronic, controlled Current Visit: Yes Status: Acute Plan: Metoprolol 25mg po BID monitor electrolytes/replace as necessary Monitor vital signs Depression Anxiety resume appropriate home med, prn ativan added Cardiac diet full code DVT Lovenox Disposition:Home Discharge Plan: Home - Code Status/Comfort Care Code Status: Full Code Critical Care: No Time Spent Managing PTS Care (In Minutes): 35 <Kadi Bloom - Last Filed: 09/04/23 18:49>
--- NOTE | 2023-09-04 14:48 | ECHO ---
HEIGHT: 5 ft 8 in WEIGHT: 217 lb 12.8 oz DATE OF STUDY: 09/04/[address]: Kadi Bloom 2-DIMENSIONAL: YES M.MODE: YES DOPPLER: YES COLOR FLOW: YES TDS: PORTABLE: YES DEFINITY: BUBBLE STUDY: DIAGNOSIS: ATRIAL FIBRILLATION, ELEVATED TROPONIN, BNP CARDIAC HISTORY: CATHERIZATION: NO SURGERY: NO PROSTHETIC VALVE: NO PACEMAKER: NO MEASUREMENTS (cm) DIASTOLIC (NORMALS) SYSTOLIC (NORMALS) IVSd 1.3 (0.6-1.2) LA Diam 2.4 (1.9-4.0) LVEF 66% LVIDd 3.3 (3.5-5.7) LVIDs 2.1 (2.0-3.5) %FS 35% LVPWd 1.3 (0.6-1.2) Ao Diam 2.0 (2.0-3.7) 2 DIMENSIONAL ASSESSMENT: RIGHT ATRIUM: NORMAL LEFT ATRIUM: NORMAL RIGHT VENTRICLE: NORMAL LEFT VENTRICLE: LEFT VENTRICULAR HYPERTROPHY TRICUSPID VALVE: TRACE TRICUSPID REGURGITATION MITRAL VALVE: NORMAL PULMONIC VALVE: NORMAL AORTIC VALVE: NORMAL PERICARDIAL EFFUSION: NONE AORTIC ROOT: NORMAL LEFT VENTRICULAR WALL MOTION: NORMAL DOPPLER/COLOR FLOW: SEE BELOW COMMENTS: 1. NORMAL LEFT VENTRICULAR EJECTION FRACTION 60-65% WITH NORMAL WALL MOTION 2. MODERATE DILATED DYSFUNCTION 3. MILD CONCENTRIC LEFT VENTRICULAR HYPERTROPHY 4. MILD TRICUSPID REGURGITATION TECHNOLOGIST: DAYNA HUIZAR
--- NOTE | 2023-09-04 15:28 | EKG ---
Test Date: 2023-09-03 Test Time: 21:10:34 Fishing Line Winding Machine Operator: JOSE MEASUREMENT RESULTS: Intervals: Rate: 83 IL: 158 QRSD: 98 QT: 416 QTc: 488 [place]: P: 31 IL: 158 QRS: 30 T: 125 INTERPRETIVE STATEMENTS: Sinus rhythm with premature atrial complexes T wave abnormality, consider lateral ischemia Prolonged QT Abnormal ECG Compared to ECG 09/03/2023 14:24:14 Atrial premature complex(es) now present T-wave abnormality now present Prolonged QT interval now present Atrial fibrillation no longer present ST (T wave) deviation no longer present Possible ischemia still present Electronically Signed On 09-04-23 15:26:50 ASSET PROTECTION PROFESSIONAL by Pio Ortiz
--- NOTE | 2023-09-04 15:30 | EKG ---
Test Date: 2023-09-03 Test Time: 14:24:14 Merchandise Marker: ANTONIO MEASUREMENT RESULTS: Intervals: Rate: 117 VT: QRSD: 90 QT: 348 QTc: 485 [place]: P: VT: QRS: 14 T: 119 INTERPRETIVE STATEMENTS: Atrial fibrillation with rapid ventricular response ST & T wave abnormality, consider lateral ischemia or digitalis effect Abnormal ECG Compared to ECG 09/02/2023 18:04:19 Prolonged QT interval no longer present ST (T wave) deviation still present Possible ischemia still present Electronically Signed On 09-04-23 15:27:42 COMMERCIAL LINES MANAGER by Pio Ortiz
[2023-09-04] MEDS ORDERED: TRAMADOL HCL 50 MG TAB PO PRN (18:32)
[2023-09-05] MEDS: IPRATROPIUM BROM 0.5MG/2.5ML NEB SCH ×3 (01:29→13:53)
[2023-09-05] MEDS: METOPROLOL TAR 25 MG TAB PO SCH (05:26)
--- NOTE | 2023-09-05 07:11 | P.PN ---
Date of Service: 09/05/23 At 0532 I was called for evaluation of Ms. Brar. When the Nursing staff went in to wake her to give her Lopressor, they could not wake her. As I was headed to the floor, a rapid response was called. On entry to the room Ms. Brar was on her right side, left arm contracted, increased muscle tone, with cyanosis. She was making noise but not answering questions or able to track anyone speaking to her. Seizure vs arrhythmia? project technician contacted and she states she had called and asked them to check on Ms. Brar as she had some EKG changes. Pt taken down via stretcher for CT head with rapid response team. Pt remained confused, breathing easily, mild expiratory wheezes. CT head negative for hemorrhage or acute change. 12 lead EKG done - NSR at 94bpm. QTc 457. Dr. Ortiz contacted. Pt will be upgraded to ICU to observe a bit more closely. Awaiting morning electrolyte results.
[2023-09-05] MEDS: INSULIN REGULAR (HUMAN) 100 UNIT/ML SQ SCH ×3 (07:30→16:12)
[2023-09-05] MEDS: ARFORMOTEROL TARTRATE 15 MCG/2 ML VIAL.NEB NEB SCH (08:00)
[2023-09-05] MEDS ORDERED: IPRATROPIUM BROM 0.5MG/2.5ML ONE ×2 (08:07→13:51)
--- NOTE | 2023-09-05 08:07 | P.PN ---
Subjective Date of Service: 09/05/23 Primary Care Provider: Dr. Álvarez Chief Complaint: Atrial fibrillation with RVR, Influenza reported seizure activity from the nurse this a.m., rapid response called, CT of the head completed, neurology consulted, patient is postictal, PT, speech eval ordered - Physical Exam General: Confused, postictal, RLE weakness, follows commands HEENT: Atraumatic, Normocephalic, PERRLA Neck: Supple, 2+ carotid pulse no bruit Respiratory: Normal air movement, equal, unlabored, mild wheezes Cardiovascular: No edema Capillary refill: <2 Seconds Gastrointestinal: Normal bowel sounds, Soft and benign Musculoskeletal: No clubbing Integumentary: No rashes Neurological: slurred speech, no facial droop, Lymphatics: No axilla or inguinal lymphadenopathy Review of Systems per HPI Physical Examination - Vital Signs Temperature: 99.7 F Blood Pressure: 154/70 Pulse: 81 Respirations: 18 Pulse Ox (%): 93 Assessment And Plan - Plan Assessment plan Seizure vs CVA Transfered ICU, tele pt had taken tramadol lowers seizure threshold, rapid response called, CT head ordered, Neuro consulted Seizure Keppra loading dose added, seizure precautions, CVA-ASA, plavix, anti lipid, folic acid added, SP, PT eval added CT of head/neck ordered CTNeck Angio IMPRESSION: No significant abnormality is displayed CT Head IMPRESSION: 6 millimeter area of diminished contrast within the P1 segment left posterior cerebral artery appears acute and probably indicates thrombus Influenza A acute Current Visit: Yes Status: Acute Plan: Tamiflu 75mg po BID x 5 days Fluid/electrolyte replacement leukocytosis improved WBC 11.90->8.90 +Influ A-Tamiflu UA 75 leukoesterase leukocytosis Atrial fibrillation acute, controlled Current Visit: Yes Status: Acute Plan: cardiology consulted, tele Pt states she does not have a diagnosis of atrial fibrillation, but takes coreg. Will check previous admission. Rate control. Previous EKG 08/21/23 documented NSR at 97bpm, no previous available. PE protocol CT performed 08/25/23, negative Telemetry Dr. Ortiz recommends changing coreg to Metoprolol. Qualifiers: Atrial fibrillation type: unspecified Qualified Code(s): I48.91 - Unspecified atrial fibrillation Emergency room EKG: EKG independently reviewed and interpreted by me, shows atrial flutter, rate 103 with variable conduction, no acute ST segment elevations, intervals are pertinent for QTc prolongation at 521 documented, vital signs BP 88 / 41; Pulse 101; Resp 18; Temp 97.8; Pulse Ox 94% on R/A, was treated with Coreg 25 twice daily, 2 L normal saline cardiology consulted Elevated troponin improving Troponin 61, Troponin 61.8->46.4->43.4->39. Trend troponin, telemetry Echo ordered Elevated BNP improving BNP 7665, BNP 7665->4192 Acute on chronic kidney injury unknown baseline-improving BUN 45 creatinine 1.21, VERONICA CKD BUN 45/1.56-> 45/1.21-> 27.0.79 Renal consult Renal ultrasound IMPRESSION: Benign appearing bilateral renal cysts, otherwise negative study serum osmole, urine osmol, urine sodium ordered Hypokalemia Potassium 3.0, K 3.0->3.2 Trend electrolytes replace as needed Hypoalbuminemia Albumin 2.6 Hypertension chronic, controlled Current Visit: Yes Status: Acute Plan: Metoprolol 25mg po BID monitor electrolytes/replace as necessary Monitor vital signs Depression Anxiety resume appropriate home med, prn ativan added Cardiac diet full code DVT Lovenox Disposition:Home Discharge Plan: Home - Code Status/Comfort Care Code Status: Full Code Critical Care: Yes Time Spent Managing PTS Care (In Minutes): 55
[2023-09-05] MEDS ORDERED: levETIRAcetam 1,000 MG in NA CHLORIDE 0.9% 100 ML IV ONE (08:15)
[2023-09-05 08:31] LABS: Absolute Lymphocytes (CBC) 1.1 K/uL (0.7-4.9); Hematocrit 39.8 % (36.0-45.0); Lymphocytes % 8.8 % (15.3-44.8); MCV 89.7 fL (80-100); MPV 12.1 fL (7.6-11.3); Platelets 116 thou/uL (152-406); RBC Red Blood Cell Count 4.44 M/uL (3.86-4.86)
[2023-09-05 08:43] LABS: Albumin 2.6 g/dL (3.4-5.0); Bilirubin Total 0.7 mg/dL (0.2-1.0); Potassium 3.6 mEq/L (3.5-5.1); Protein, Total 6.1 g/dL (6.4-8.2)
[2023-09-05] MEDS ORDERED: FOLIC ACID 1 MG TABLET PO SCH (09:00)
[2023-09-05] MEDS: CLOPIDOGREL 75 MG TABLET PO SCH ×2 (09:00→10:16)
[2023-09-05] MEDS ORDERED: ASPIRIN 325 MG TAB PO SCH (09:00)
--- NOTE | 2023-09-05 09:18 | RAD REPORT ---
EXAM DESCRIPTION: Digna Angio09/05/2023 8:42 am CLINICAL HISTORY: Right lower extremity weakness COMPARISON: None TECHNIQUE: 100 cc Isovue [address] angiogram of the neck was obtained. 3D MIPS reconstruction performed. All CT scans are performed using dose optimization technique as appropriate and may include automated exposure control or mA/KV adjustment according to patient size. FINDINGS: No significant plaque is present within common carotid, internal carotid and external gonsales tid arteries bilaterally Vertebral arteries unremarkable No dissection is seen. No high-grade stenosis IMPRESSION: No significant abnormality is displayed [place] Mild stenosis 0 to 49 % Moderate stenosis 50-69% Severe stenosis 70-99%
--- NOTE | 2023-09-05 09:27 | RAD REPORT ---
EXAM DESCRIPTION: CTHead angio09/05/2023 8:42 am CLINICAL HISTORY: Right lower extremity weakness COMPARISON: None TECHNIQUE: 100 cc Isovue [address] angiogram of the head was obtained. 3D MIPS reconstruction performed. All CT scans are performed using dose optimization technique as appropriate and may include automated exposure control or mA/KV adjustment according to patient size. FINDINGS: 6 millimeter area of diminished contrast within the P1 segment left posterior cerebral art steph. Right posterior cerebral, basilar, middle cerebral, anterior cerebral and distal internal carotid art eries appear unremarkable An aneurysm is not seen IMPRESSION: 6 millimeter area of diminished contrast within the P1 segment left posterior cerebral artery appears acute and probably indicates thrombus
[2023-09-05 09:29] LABS: Arterial Blood Carboxyhemoglob 1.3 % (0-1.5); Blood Gas Oxyhemoglobin 92.8 % (94-97); Blood O2 Saturation 95.6 % (92-98.5)
--- NOTE | 2023-09-05 09:34 | RAD REPORT ---
EXAM DESCRIPTION: Timmy Single View09/05/2023 8:22 am CLINICAL HISTORY: Tachycardia COMPARISON: September 02, 2023 FINDINGS: The lungs appear clear of acute infiltrate. The heart is normal size IMPRESSION: No acute abnormalities displayed
[2023-09-05 09:39] VITALS: O2SAT 97
[2023-09-05] MEDS ORDERED: ASPIRIN 325 MG TAB ONE (09:59)
[2023-09-05] MEDS ORDERED: CLOPIDOGREL 75 MG TABLET ONE (10:00)
[2023-09-05] MEDS ORDERED: ENOXAPARIN 40 MG/0.4 ML SQ ONE (10:00)
[2023-09-05] MEDS ORDERED: FOLIC ACID 1 MG TABLET ONE (10:00)
[2023-09-05] MEDS: ENOXAPARIN 40 MG/0.4 ML SQ SCH (10:16)
[2023-09-05 16:06] VITALS: TEMP 99.7
--- NOTE | 2023-09-05 16:22 | P.DS ---
Admission Date: 09/02/23 Discharge Date: 09/05/23 Primary Care Provider: Dr. Álvarez Disposition: [facility] Discharge Condition: SERIOUS Reason for Admission: Atrial fibrillation with RVR, Influenza Brief History of Present Illness: Ms. Brar is a 62 yo discharged from [facility] on 08/31/23 s/p admission for pneumonia. Her Son called EMS today for increased weakness and palpitations. She was found to be influenza positive in ED with atrial fibrillation with rapid ventricular response in the 140's. She received 10mg Cardizem per EMS in route to the ED. After two liters of normal saline in the emergency room, her HR is down to 100-110. She will be readmitted for influenza, atrial fibrillation with RVR, dehydration. Physical Exam General: Confused, postictal, RLE weakness, follows commands HEENT: Atraumatic, Normocephalic, PERRLA Neck: Supple, 2+ carotid pulse no bruit Respiratory: Normal air movement, equal, unlabored, mild wheezes Cardiovascular: No edema Capillary refill: <2 Seconds Gastrointestinal: Normal bowel sounds, Soft and benign Musculoskeletal: No clubbing Integumentary: No rashes Neurological: slurred speech, no facial droop, Lymphatics: No axilla or inguinal lymphadenopathy Hospital Course: - Plan Acute CVA overnight plan to transfer to neurosurgery via [facility] Assessment plan Acute CVA Seizure vs CVA Transfered ICU, tele pt had taken tramadol lowers seizure threshold, rapid response called, CT head ordered, Neuro consulted Seizure Keppra loading dose added, seizure precautions, CVA-ASA, plavix, anti lipid, folic acid added, SP, PT eval added CT of head/neck ordered CTNeck Angio IMPRESSION: No significant abnormality is displayed CT Head IMPRESSION: 6 millimeter area of diminished contrast within the P1 segment left posterior cerebral artery appears acute and probably indicates thrombus Influenza A acute Current Visit: Yes Status: Acute Plan: Tamiflu 75mg po BID x 5 days Fluid/electrolyte replacement leukocytosis improved WBC 11.90->8.90 +Influ A-Tamiflu UA 75 leukoesterase leukocytosis Atrial fibrillation acute, controlled Current Visit: Yes Status: Acute Plan: cardiology consulted, tele Pt states she does not have a diagnosis of atrial fibrillation, but takes coreg. Will check previous admission. Rate control. Previous EKG 08/21/23 documented NSR at 97bpm, no previous available. PE protocol CT performed 08/25/23, negative Telemetry Dr. Ortiz recommends changing coreg to Metoprolol. Qualifiers: Atrial fibrillation type: unspecified Qualified Code(s): I48.91 - Unspecified atrial fibrillation Emergency room EKG: EKG independently reviewed and interpreted by me, shows atrial flutter, rate 103 with variable conduction, no acute ST segment elevations, intervals are pertinent for QTc prolongation at 521 documented, vital signs BP 88 / 41; Pulse 101; Resp 18; Temp 97.8; Pulse Ox 94% on R/A, was treated with Coreg 25 twice daily, 2 L normal saline cardiology consulted Elevated troponin improving Troponin 61, Troponin 61.8->46.4->43.4->39. Trend troponin, telemetry Echo ordered Elevated BNP improving BNP 7665, BNP 7665->4192 Acute on chronic kidney injury unknown baseline-improving BUN 45 creatinine 1.21, VERONICA CKD BUN 45/1.56-> 45/1.21-> 27.0.79 Renal consult Renal ultrasound IMPRESSION: Benign appearing bilateral renal cysts, otherwise negative study serum osmole, urine osmol, urine sodium ordered Hypokalemia Potassium 3.0, K 3.0->3.2 Trend electrolytes replace as needed Hypoalbuminemia Albumin 2.6 Hypertension chronic, controlled Current Visit: Yes Status: Acute Plan: Metoprolol 25mg po BID monitor electrolytes/replace as necessary Monitor vital signs Depression Anxiety resume appropriate home med, prn ativan added Cardiac diet full code DVT Lovenox Vital Signs/Physical Exam: Temp Pulse Resp BP Pulse Ox 99.7 F 81 18 154/70 H 93 09/05/23 16:06 09/05/23 16:06 09/05/23 16:06 09/05/23 16:06 09/05/23 16:06 Laboratory Data at Discharge: WBC 12.90 thou/uL (4.3-10.9) H 09/05/23 08:10 Hgb 13.1 g/dL (12.0-15.0) 09/05/23 08:10 Hct 39.8 % (36.0-45.0) 09/05/23 08:10 Plt Count 116 thou/uL (152-406) L 09/05/23 08:10 Sodium 141 mEq/L (136-145) 09/05/23 08:10 Potassium 3.6 mEq/L (3.5-5.1) 09/05/23 08:10 BUN 16 mg/dL (7-18) 09/05/23 08:10 Creatinine 0.73 mg/dL (0.55-1.02) 09/05/23 08:10 Glucose 180 mg/dL (74-106) H 09/05/23 08:10 Phosphorus 3.0 mg/dL (2.5-4.9) 09/03/23 07:24 Magnesium 2.0 mg/dL (1.6-2.4) 09/05/23 08:10 Total Bilirubin 0.7 mg/dL (0.2-1.0) 09/05/23 08:10 AST 16 U/L (15-37) 09/05/23 08:10 ALT 23 U/L (13-56) 09/05/23 08:10 Alkaline Phosphatase 54 U/L (45-117) 09/05/23 08:10 Triglycerides 311 mg/dL (<150) H 09/03/23 07:24 Cholesterol 177 mg/dL (<200) 09/03/23 07:24 HDL Cholesterol 31 mg/dL (40-60) L 09/03/23 07:24 Cholesterol/HDL Ratio 5.71 09/03/23 07:24 Home Medications: ALPRAZolam [Xanax*] 0.5 mg PO TID 08/22/23 Carvedilol [Coreg] 25 mg PO BID 08/22/23 Escitalopram [Lexapro*] 20 mg PO DAILY 08/22/23 Mecobalamin [B12 Active] 1,000 mcg PO DAILY 08/22/23 Valsartan 320 mg PO DAILY 08/22/23 Mometasone/Formoterol [Dulera 200 Mcg/5 Mcg Inhaler] 2 puff IH BID #60 inhaler 08/31/23 hydroCHLOROthiazide [Hydrochlorothiazide] 25 mg PO DAILY 30 Days #30 tab 08/31/23 ALPRAZolam [Xanax*] 0.25 mg PO BEDTIME PRN PRN tab 09/05/23 ALPRAZolam [Xanax*] 0.25 mg PO TID PRN tab 09/05/23 Arformoterol Tartrate [Brovana] 15 mcg NEB BIDRESP vial.neb 09/05/23 Aspirin Tab [Anjana Aspirin*] 325 mg PO DAILY tab 09/05/23 Atorvastatin Calcium [Lipitor] 40 mg PO BEDTIME tab 09/05/23 Clopidogrel Bisulfate [Plavix*] 75 mg PO DAILY 09/05/23 Enoxaparin Sodium [Lovenox 40 MG INJ*] 40 mg SQ DAILY syr 09/05/23 Hydrocodone/Chlorphen Polis [Tussionex Oral Susp*] 5 ml PO BID PRN osyr 09/05/23 Insulin -Regular Human [Novolin -R*] See Protocol SQ ACHS ml 09/05/23 Ipratropium Neb [Atrovent*] 0.5 mg NEB [id number] amp 09/05/23 Metoprolol Tartrate [Lopressor*] 25 mg PO BID 6AM 6PM tab 09/05/23 Pharmacy Consult 1 ea XX DAILYPRN PRN ea 09/05/23 levETIRAcetam [Keppra*] 500 mg PO BID tab 09/05/23 Physician Discharge Instructions: PROBLEM: - Plan Acute CVA overnight plan to transfer to neurosurgery via [facility] Assessment plan Acute CVA Seizure vs CVA Transfered ICU, tele pt had taken tramadol lowers seizure threshold, rapid response called, CT head ordered, Neuro consulted Seizure Keppra loading dose added, seizure precautions, CVA-ASA, plavix, anti lipid, folic acid added, SP, PT eval added CT of head/neck ordered CTNeck Angio IMPRESSION: No significant abnormality is displayed CT Head IMPRESSION: 6 millimeter area of diminished contrast within the P1 segment left posterior cerebral artery appears acute and probably indicates thrombus Influenza A acute Current Visit: Yes Status: Acute Plan: Tamiflu 75mg po BID x 5 days Fluid/electrolyte replacement leukocytosis improved WBC 11.90->8.90 +Influ A-Tamiflu UA 75 leukoesterase leukocytosis Atrial fibrillation acute, controlled Current Visit: Yes Status: Acute Plan: cardiology consulted, tele Pt states she does not have a diagnosis of atrial fibrillation, but takes coreg. Will check previous admission. Rate control. Previous EKG 08/21/23 documented NSR at 97bpm, no previous available. PE protocol CT performed 08/25/23, negative Telemetry Dr. Ortiz recommends changing coreg to Metoprolol. Qualifiers: Atrial fibrillation type: unspecified Qualified Code(s): I48.91 - Unspecified atrial fibrillation Emergency room EKG: EKG independently reviewed and interpreted by me, shows atrial flutter, rate 103 with variable conduction, no acute ST segment elevations, intervals are pertinent for QTc prolongation at 521 documented, vital signs BP 88 / 41; Pulse 101; Resp 18; Temp 97.8; Pulse Ox 94% on R/A, was treated with Coreg 25 twice daily, 2 L normal saline cardiology consulted Elevated troponin improving Troponin 61, Troponin 61.8->46.4->43.4->39. Trend troponin, telemetry Echo ordered Elevated BNP improving BNP 7665, BNP 7665->4192 Acute on chronic kidney injury unknown baseline-improving BUN 45 creatinine 1.21, VERONICA CKD BUN 45/1.56-> 45/1.21-> 27.0.79 Renal consult Renal ultrasound IMPRESSION: Benign appearing bilateral renal cysts, otherwise negative study serum osmole, urine osmol, urine sodium ordered Hypokalemia Potassium 3.0, K 3.0->3.2 Trend electrolytes replace as needed Hypoalbuminemia Albumin 2.6 Hypertension chronic, controlled Current Visit: Yes Status: Acute Plan: Metoprolol 25mg po BID monitor electrolytes/replace as necessary Monitor vital signs Depression Anxiety resume appropriate home med, prn ativan added GOAL: Clear understanding of disease process INSTRUCTIONS: Physician Discharge Instructions: -Transfer to Acute care for Neuro surgery eval -Please call if any questions regarding hospital stay -Please call nursing station at [phone] if any nursing or medication questions - Diet: ADA, low sodium Activity: Fall precautions DME: Date Ordered: Name of Company: [employer] Services Needed: None Date or Referral: IMMUNIZATION Influenza Vaccine Indicated: Influenza Vaccine Given: Date Given: Pneumonia Vaccine Indicated: Pneumonia Vaccine Given: Date Given: Diet: NPO Activity: Fall precautions Followup: NONE,NONE [Primary Care Provider] - Time spent managing pt's care (in minutes): 55
[2023-09-05] MEDS ORDERED: METOPROLOL TAR 25 MG TAB ONE (16:23)
--- NOTE | 2023-09-05 17:43 | RAD REPORT ---
EXAM DESCRIPTION: CT - Ct Stroke Brain Wo Cont - 09/05/2023 7:34 am ADDENDUM #1 THIS REPORT CONTAINS FINDINGS THAT MAY BE CRITICAL TO PATIENT CARE: The findings were verbally discus sed via telephone conference with GUILLERMINA Alvares 6:32 AM central time September 05, 2023. The result s were acknowledged and understood. Electronically signed by: Jacki Britton MD 09/05/2023 06:35 AM PROJECT DEVELOPMENT ENGINEER End of Addendum EXAM DESCRIPTION: CT Head Without Intravenous Contrast CLINICAL HISTORY: The patient is 62 years old and is Female; neuro change TECHNIQUE: Axial computed tomography images of the head/brain without intravenous contrast. Sagitt al and coronal reformatted images were created and reviewed. This CT exam was performed using one o r more of the following dose reduction techniques: automated exposure control, adjustment of the mA and/or kV according to patient size, and/or use of iterative reconstruction technique. COMPARISON: April 22, 2023. FINDINGS: Brain: Mild age related periventricular white matter microangiopathic changes. No hemorrhage. Ventricles: Unremarkable. No ventriculomegaly. Bones/joints: Unremarkable. No acute skull fracture. Soft tissues: Unremarkable. Sinuses: Left maxillary sinus mucous retention cyst. No air-fluid levels. Mastoid air cells: No significant mastoid fluid. IMPRESSION: 1. No acute intracranial findings. No hemorrhage. 2. Mild age related periventricular white matter microangiopathic changes. Electronically signed by: Jacki Britton MD 09/05/2023 06:17 AM PROJECT DEVELOPMENT ENGINEER Due to temporary technical issues with the PACS/Fluency reporting system, reports are being signed by the in house radiologists without review as a courtesy to insure prompt reporting. The interpreting radiologist is fully responsible for the content of the report.
[2023-09-05 18:48] VITALS: BP 150/72
[2023-09-05] MEDS ORDERED: levETIRAcetam 500 MG TAB PO SCH (21:00)
[2023-09-05] MEDS ORDERED: ATORVASTATIN 40 MG TAB PO SCH (21:00)
--- NOTE | 2023-09-11 14:01 | EKG ---
Test Date: 2023-09-05 Test Time: 06:08:59 Tank Car Reconditioner: JOSE ELIAS MEASUREMENT RESULTS: Intervals: Rate: 94 GA: 154 QRSD: 80 QT: 366 QTc: 457 [place]: P: 52 GA: 154 QRS: 65 T: 35 INTERPRETIVE STATEMENTS: Normal sinus rhythm Nonspecific ST and T wave abnormality Abnormal ECG Compared to ECG 09/03/2023 21:11:07 ST (T wave) deviation now present Atrial premature complex(es) no longer present T-wave abnormality no longer present Possible ischemia no longer present Prolonged QT interval no longer present Electronically Signed On 09-11-23 13:46:58 FOREIGN TRADE TEACHER by Pio Ortiz
--- NOTE | 2023-09-11 14:05 | EKG ---
Test Date: 2023-09-03 Test Time: 21:11:07 Farmworker Poultry: JOSE MEASUREMENT RESULTS: Intervals: Rate: 83 MS: 174 QRSD: 78 QT: 400 QTc: 470 [place]: P: 40 MS: 174 QRS: 31 T: 130 INTERPRETIVE STATEMENTS: Sinus rhythm with premature supraventricular complexes T wave abnormality, consider anterolateral ischemia Prolonged QT Abnormal ECG Compared to ECG 09/03/2023 21:10:34 No significant changes Electronically Signed On 09-11-23 13:48:23 DEVELOPER PROVER MECHANICAL by Pio Ortiz
== END 2023-09-05 17:40 | disposition short-term general hospital (02) | DRG 308 ==
LOC: ER 17:28 → ERHOLD 20:29 → 4TH 23:10 → 3RD-ICU 09-05 07:07
PROVIDERS: ADMIT Hospitalist; ATTEND Internal Medicine
DX: I48.0 Paroxysmal atrial fibrillation (principal); I63.342 Cerebral infarction due to thrombosis of left cerebellar artery; N17.9 Acute kidney failure, unspecified; Z79.01 Long term (current) use of anticoagulants; J10.1 Influenza due to other identified influenza virus with other respiratory manifestations; F41.8 Other specified anxiety disorders; I12.9 Hypertensive chronic kidney disease with stage 1 through stage 4 chronic kidney disease, or unspecified chronic kidney disease; N18.9 Chronic kidney disease, unspecified; Z98.51 Tubal ligation status; J44.9 Chronic obstructive pulmonary disease, unspecified; E87.6 Hypokalemia; I48.92 Unspecified atrial flutter; R29.714 NIHSS score 14
CPT/HCPCS: 0241U; 36415; 36600; 70450; 70496; 70498; 71045; 76770; 80048; 80053; 80061; 81001; 82805; 82947; 83735; 83880; 83930; 83935; 84100; 84295; 84439; 84443; 84484; 85025; 93005; 93306; 94760; 97116; 97161; 99285; J1650; J1815; J1953; J7030; J7605; J7644; Q9967

== ENCOUNTER 2024-09-24 13:16 | Inpatient (IN) | payer BC ==
--- NOTE | 2024-09-24 15:22 | RAD REPORT ---
EXAM: Chest Single View HISTORY: COUGH COMPARISON: None. FINDINGS: LUNGS/PLEURA: The lungs are clear. No pleural effusions or pneumothorax. No pulmonary edema. MEDIASTINUM: The mediastinal silhouette is within normal limits. CARDIAC: Stable size and configuration. UPPER ABDOMEN: No significant abnormality. BONES: No acute abnormality. LINES/TUBES/OTHER: N/A IMPRESSION: No evidence of acute cardiopulmonary disease.
[2024-09-24] MEDS ORDERED: NA CHLORIDE 0.9% 1,000 ML ONE (16:38)
[2024-09-24] MEDS ORDERED: FOLIC ACID 5 MG/ML VIAL ONE (16:38)
[2024-09-24 17:05] LABS: Absolute Lymphocytes (CBC) 0.9 K/uL (0.7-4.9); Absolute Monocytes 1.8 K/uL (0.1-1.3); Basophils % 0.2 % (0-1.3); Eosinophils % 0.1 % (0-4.4); Hematocrit 35.8 % (36.0-45.0); Hemoglobin 11.8 g/dL (12.0-15.0); Lymphocytes % 5.6 % (15.3-44.8); MCH 29.7 pg (27.0-35.0); MCHC 33.1 g/dL (32.0-36.0); MCV 89.6 fL (80-100); MPV 11.8 fL (7.6-11.3); Monocytes % 10.7 % (3.3-12.3); Neutrophils % 83.4 % (41.7-73.7); Nucleated Red Blood Cells % 0.1 % (0-0); Platelets 125 thou/uL (152-406); RBC Red Blood Cell Count 3.99 M/uL (3.86-4.86); Red Cell Distribution Width 14.6 % (12.1-15.2)
[2024-09-24 17:10] LABS: PT Prothrombin Time 12.4 SECONDS (9.4-12.5); Protime INR 1.18
[2024-09-24 17:20] LABS: Sqamous Epithelial 20-50 /HPF (None Seen); Urine Bacteria <20 /HPF (<20); Urine Culture Reflex Order NOT NEEDED; Urine Mucus Slight /HPF (None Seen); Urine RBC 21-50 /HPF (None Seen); Urine WBC >50 /HPF (<5); Urine WBC Clump Many /HPF (None Seen)
[2024-09-24 17:26] LABS: Albumin/Globulin Ratio 0.7 (1.1-1.8); Anion Gap 13.4 mEq/L (5.0-15.0); Bilirubin Direct 0.2 mg/dL (0-0.2); Bilirubin Indirect, Calculated 0.3 mg/dL (0.2-0.8); Bilirubin Total 0.5 mg/dL (0.2-1.0); Globulin 4.5 g/dL (2.3-3.5); Magnesium 2.7 mg/dL (1.6-2.4); Potassium 3.4 mEq/L (3.5-5.1); Protein, Total 7.5 g/dL (6.4-8.2); Troponin High Sensitivity 13.6 pg/mL (<58.9)
[2024-09-24 17:32] LABS: Specific Gravity 1.017 (1.005-1.030); Urine Bilirubin NEGATIVE (Negative); Urine Blood 1+ (Negative); Urine Clarity Extremely Turbid (Clear); Urine Color Light-Orange (Yellow); Urine Glucose NEGATIVE (Negative); Urine Ketones NEGATIVE (Negative); Urine Microscopic Reflex YN NO UMIC; Urine Nitrite NEGATIVE (Negative); Urine Protein 1+ (Negative); Urine Urobilinogen 1+ (Normal); Urine pH 5.5 (5.0-7.0)
--- NOTE | 2024-09-24 18:04 | ER ---
Nurse's Notes [facility] Name: Chata Brar Age: 63 yrs Sex: Female : 1960 Arrival Date: 09/24/2024 Time: 13:16 Bed 8 Private MD: Diagnosis: Weakness;Unspecified acute conjunctivitis, bilateral;Acute cystitis with hematuria;Acute kidney failure, unspecified-on chronic;Elevated white blood cell count;Hypokalemia;Pyelonephritis acute-LEFT Presentation: 09/24 13:36 Chief complaint: Patient's son or daughter states: RECENT DC FROM [facility] FOR bp STROKE CARE, NOW AT [facility] PER DAUGHTER, PT SEEMS MORE CONFUSED. Coronavirus screen: At this time, the client does not indicate any symptoms associated with coronavirus-19. Ebola Screen: No symptoms or risks identified at this time. Initial Sepsis Screen: Does the patient meet any 2 criteria? No. Patient's initial sepsis screen is negative. Does the patient have a suspected source of infection? No. Patient's initial sepsis screen is negative. Risk Assessment: Do you want to hurt yourself or someone else? Patient reports no desire to harm self or others. Onset of symptoms is unknown. 13:36 Method Of Arrival: Ambulatory bp 13:36 Acuity: SUE 3 bp Triage Assessment: 13:36 General: Appears in no apparent distress. Behavior is calm, cooperative, appropriate bp for age. Pain: Denies pain. EENT: No deficits noted. Neuro: Level of Consciousness is awake, alert, obeys commands, Oriented to person, place, situation. Cardiovascular: No deficits noted. Respiratory: No deficits noted. GI: No signs and/or symptoms were reported involving the gastrointestinal system. : No signs and/or symptoms were reported regarding the genitourinary system. Derm: No deficits noted. Musculoskeletal: No deficits noted. Historical: - Allergies: 13:36 No Known Allergies; bp - PMHx: 13:36 Anxiety; HTN; Pre Diabetes; Cerebrovascular accident; bp - PSHx: 13:36 section; Ligation of fallopian tube; bp - Immunization history:: Adult Immunizations up to date. - Infectious Disease History:: Denies. - Social history:: Smoking status: Patient denies any tobacco usage or history of. - Family history:: not pertinent. Screenin:39 [facility] ED Fall Risk Assessment (Adult) History of falling in the last 3 months, bp including since admission No falls in past 3 months (0 pts) Confusion or Disorientation No (0 pts) Intoxicated or Sedated No (0 pts) Impaired Gait No (0 pts) Mobility Assist Device Used Yes (1 pt) Altered Elimination No (0 pt) Score/Fall Risk Level 0 - 2 = Low Risk. Abuse screen: Denies threats or abuse. Denies injuries from another. Nutritional screening: No deficits noted. Tuberculosis screening: No symptoms or risk factors identified. Assessment: 17:00 General: Appears in no apparent distress. comfortable, Behavior is calm, cooperative, ld1 appropriate for age. Pain: Denies pain. Neuro: Level of Consciousness is awake, alert, confused, Oriented to person, place, time, situation, Appropriate for age. Cardiovascular: Capillary refill < 3 seconds Patient's skin is warm and dry. Rhythm is sinus rhythm. Respiratory: Airway is patent Respiratory effort is even, unlabored. GI: Abdomen is round non-distended. : No signs and/or symptoms were reported regarding the genitourinary system. Urine is cloudy. EENT: No signs and/or symptoms were reported regarding the EENT system. Derm: No signs and/or symptoms reported regarding the dermatologic system. Musculoskeletal: No signs and/or symptoms reported regarding the musculoskeletal system. Vital Signs: 13:36 BP 107 / 59; Pulse 85; Resp 16; Temp 98; Pulse Ox 95% ; bp 17:42 BP 134 / 70; Pulse 79; Resp 18; Pulse Ox 96% on R/A; ld1 18:04 Weight 100.7 kg; ld1 ED Course: 13:21 Patient arrived in ED. sj2 13:35 Martin Thomas MD is Attending Physician. aliza 13:36 Arm band placed on. bp 13:37 Triage completed. bp 15:12 XRAY Chest (1 view) In Process Unspecified. EDMS 16:08 Radiology exam delayed due to lab results not completed at this time. (BUN/Creatinine) mw3 IV insertion attempt and/or patient not having appropriate IV at this time. 16:32 Nessa Carroll, RN is Primary Nurse. ld1 17:00 Patient has correct armband on for positive identification. Placed in gown. Bed in low ld1 position. Call light in reach. Side rails up X2. monitor and storage bin tender on. Pulse ox on. NIBP on. Door closed. Noise minimized. Warm blanket given. 17:00 Missed attempt(s): 22 gauge in right antecubital area. ld1 17:00 Urinalysis w/ reflexes Sent. ld1 17:00 No provider procedures requiring assistance completed. ld1 17:30 Provided Education on: labs, meds, IV. ko1 17:42 Inserted saline lock: 20 gauge in right forearm, using aseptic technique. Blood ld1 collected. Flushed with 10 mL NS. 18:01 CT Head Brain wo Cont In Process Unspecified. EDMS 18:01 CT Chest Abdomen Pelvis W/O Contrast In Process Unspecified. EDMS 18:02 Domingo Morrow MD is Hospitalizing Provider. [facility] 18:54 Accessed peripheral vein via ultrasound, utilizing dynamic ultrasound technique using ap3 20G Nexia IV catheter ,sterile technique, per hospital protocol. Clean \T\ dry. Dressing intact. Good blood return. Flushes easily. 19:00 SARS RAPID Sent. ko1 19:01 Flu Sent. ko1 19:01 Lactate w/ 2H reflex if indic. Sent. ko1 19:01 Blood Culture Adult (2) Sent. ko1 22:04 Patient admitted, IV remains in place. ha1 Administered Medications: 17:42 Discontinued: ns 0.9% 1000 ml IV at 1000 ml once; to be given as a bolus over 60 minutescha 17:41 Drug: foLIC Acid IVPB 1 mg IVPB once Route: IVPB; Site: right forearm; ld1 19:05 Follow up: Response: No adverse reaction al5 20:23 Follow up: Response: No adverse reaction; IV Status: Completed infusion al5 17:41 Drug: NS 0.9% IV 1000 ml IV at 1000 ml once; to be given as a bolus over 60 minutes ld1 Route: IV; Rate: 1000 ml; Site: right forearm; 19:05 Follow up: Response: No adverse reaction; IV Status: Completed infusion; IV Intake: al5 1000ml 18:19 Drug: ERYTHromycin Ophthalmic Ointment 1 application Ophthalmic once Route: Ophthalmic; ko1 Site: both eyes; 19:20 Follow up: Response: No adverse reaction ha1 19:01 Drug: NS 0.9% IV (30 ml/kg) 30 ml/kg IV at bolus once; Sepsis Protocol; to be given as ko1 a bolus over 90 minutes Route: IV; Rate: bolus; Site: right upper arm; 21:40 Follow up: Response: No adverse reaction; IV Status: Infusion continued upon admission ha1 20:26 Drug: Meropenem IV 1 grams IV at per protocol once; (mix in NS 100 mL) Route: IV; Rate: al5 per protocol; Site: left upper arm; 21:20 Follow up: Response: No adverse reaction; IV Status: Completed infusion; IV Intake: ha1 100ml Medication: 17:00 VIS not applicable for this client. ld1 Intake: 19:05 IV: 1000ml; Total: 1000ml. al5 21:20 IV: 100ml; Total: 1100ml. ha1 Outcome: 18:04 Decision to Hospitalize by Provider. aliza 22:04 Admitted to Med/surg accompanied by tech, via stretcher, room 229, with chart, ha1 22:04 Condition: stable 22:04 Instructed on the need for admit, Demonstrated understanding of instructions, 22:06 Patient left the ED. ha1 Signatures: Dispatcher [employer] EDMS Martin Thomas MD MD cha Peltier, Brian, RN RN bp Carla Wallace RN RN [email or web address] Theresa Rosales mw3 Nessa Carroll RN RN ld1 Lucy Pringle RN RN ha1 Jami Mehta, VERONICA RN Carla Watts RN RN al5 Ida Bowden 2
--- NOTE | 2024-09-24 18:04 | EDPHYS ---
Physician Documentation [facility] Name: Chata Brar Age: 63 yrs Sex: Female : 1960 Arrival Date: 09/24/2024 Time: 13:16 Bed 8 Private MD: DARIANA Physician Martin Thomas HPI: 09/24 17:55 This 63 yrs old Female presents to ER via Ambulatory with complaints of aliza COGNITIVE CHANGES SINCE COMING FROM SHELTER-POST STROKE. 17:55 The patient is experiencing decreased vision, pain, redness, The patient sustained aliza None. to both eyes. Onset: The symptoms/episode began/occurred 5 day(s) ago. Aggravated by nothing. Alleviated by blinking, covering eye. Associated signs and symptoms: Pertinent positives: chills. weak, eye dc, not thinking clearly. The patient presents with confusion, trouble concentrating. Possible causes: CVA or TIA, head injury, low blood sugar, seizure, sepsis. Historical: - Allergies: 13:36 No Known Allergies; bp - PMHx: 13:36 Anxiety; HTN; Pre Diabetes; Cerebrovascular accident; bp - PSHx: 13:36 section; Ligation of fallopian tube; bp - Immunization history:: Adult Immunizations up to date. - Infectious Disease History:: Denies. - Social history:: Smoking status: Patient denies any tobacco usage or history of. - Family history:: not pertinent. ROS: 17:55 Constitutional: Negative for fever, chills, and weight loss, ENT: Negative for injury, aliza pain, and discharge, Neck: Negative for injury, pain, and swelling, Cardiovascular: Negative for chest pain, palpitations, and edema, Respiratory: Negative for shortness of breath, cough, wheezing, and pleuritic chest pain, Abdomen/GI: Negative for abdominal pain, nausea, vomiting, diarrhea, and constipation, Back: Negative for injury and pain, : Negative for injury, bleeding, discharge, and swelling, MS/Extremity: Negative for injury and deformity, Skin: Negative for injury, rash, and discoloration, Psych: Negative for depression, anxiety, suicide ideation, homicidal ideation, and hallucinations, Allergy/Immunology: Negative for hives, rash, and allergies, Endocrine: Negative for neck swelling, polydipsia, polyuria, polyphagia, and marked weight changes, 17:55 Eyes: Positive for blurry vision, discharge, matting, 17:55 Neuro: Positive for altered mental status, weakness, Exam: 17:55 Constitutional: This is a well developed, well nourished patient who is awake, alert, aliza and in no acute distress. Head/Face: Normocephalic, atraumatic. ENT: Nares patent. No nasal discharge, no septal abnormalities noted. Tympanic membranes are normal and external auditory canals are clear. Oropharynx with no redness, swelling, or masses, exudates, or evidence of obstruction, uvula midline. Mucous membranes moist. Neck: Trachea midline, no thyromegaly or masses palpated, and no cervical lymphadenopathy. Supple, full range of motion without nuchal rigidity, or vertebral point tenderness. No Meningismus. Chest/axilla: Normal chest wall appearance and motion. Nontender with no deformity. No lesions are appreciated. Cardiovascular: Regular rate and rhythm with a normal S1 and S2. No gallops, murmurs, or rubs. Normal PMI, no JVD. No pulse deficits. Respiratory: Lungs have equal breath sounds bilaterally, clear to auscultation and percussion. No rales, rhonchi or wheezes noted. No increased work of breathing, no retractions or nasal flaring. Abdomen/GI: Soft, non-tender, with normal bowel sounds. No distension or tympany. No guarding or rebound. No evidence of tenderness throughout. Female : Normal external genitalia. Skin: Warm, dry with normal turgor. Normal color with no rashes, no lesions, and no evidence of cellulitis. MS/ Extremity: Pulses equal, no cyanosis. Neurovascular intact. Full, normal range of motion., bilateral aka Psych: Awake, alert, with orientation to person, place and time. Behavior, mood, and affect are within normal limits. 17:55 Eyes: Pupils: no acute changes, equal, round, and reactive to light and accomodation, Extraocular movements: no acute changes, Conjunctiva: exudate, bilaterally, injected, bilaterally, Corneas: no acute changes, foreign body, is not appreciated, Sclera: injected, Nystagmus: is not appreciated, 17:55 ECG was reviewed by the Attending Physician. Vital Signs: 13:36 BP 107 / 59; Pulse 85; Resp 16; Temp 98; Pulse Ox 95% ; bp 17:42 BP 134 / 70; Pulse 79; Resp 18; Pulse Ox 96% on R/A; ld1 18:04 Weight 100.7 kg; ld1 MDM: 13:35 Medical Screening Exam initiated aliza 17:59 Differential diagnosis: Corneal abrasion of Infectious conjunctivitis in. Differential aliza Diagnosis altered mental status, sepsis, flu. Differential Diagnosis: cardiac arrhythmia, sepsis, electrolyte abnormality, hypoglycemia, intracranial bleed, meningitis, pneumonia, seizure, sepsis, TIA, UTI, volume depletion. Data reviewed: vital signs, nurses notes, lab test result(s), EKG, radiologic studies, CT scan, plain films. Consideration of Admission/Observation Patient was admitted/placed on observation. Escalation of care including admission/observation considered. I considered the following discharge prescriptions or medication management in the emergency department Medications were administered in the Emergency Department. See MAR. Independent interpretation of the following test(s) in the Emergency Department EKG: See my EKG interpretation above. Test considered but Not performed: MRI: no mri brain. Historians other than the Patient: Daughter/Son: daughter well informed. Care significantly affected by the following chronic conditions: Obesity, cva. 09/24 13:37 Order name: Basic Metabolic Panel; Complete Time: 17:42 09/24 13:37 Order name: CBC with Diff; Complete Time: 17:17 09/24 13:37 Order name: LFT's; Complete Time: 17:42 09/24 13:37 Order name: Magnesium; Complete Time: 17:42 09/24 13:37 Order name: NT PRO-BNP; Complete Time: 17:42 09/24 13:37 Order name: PT-INR; Complete Time: 17:17 09/24 13:37 Order name: Troponin HS; Complete Time: 17:42 09/24 13:37 Order name: Lipase; Complete Time: 17:42 09/24 13:37 Order name: Urinalysis w/ reflexes; Complete Time: 17:42 09/24 17:47 Order name: Blood Culture Adult (2) 09/24 17:47 Order name: Lactate w/ 2H reflex if indic. 09/24 17:47 Order name: Urine Culture 09/24 17:47 Order name: Flu 09/24 17:47 Order name: SARS RAPID 09/24 19:52 Order name: Urinalysis w/ reflexes [facility] 09/24 19:52 Order name: CBC with Automated Diff [facility] 09/24 19:52 Order name: CBC with Automated Diff [facility] 09/24 19:52 Order name: Comprehensive Metabolic Panel [facility] 09/24 19:52 Order name: Comprehensive Metabolic Panel [facility] 09/24 13:37 Order name: XRAY Chest (1 view); Complete Time: 16:55 [facility] 09/24 13:37 Order name: CT Head Brain wo Cont; Complete Time: 19:01 [facility] 09/24 17:47 Order name: CT Chest Abdomen Pelvis W/O Contrast; Complete Time: 19:01 [facility] 09/24 19:52 Order name: Physical Therapy Consult [facility] 09/24 13:37 Order name: Cardiac monitoring; Complete Time: 16:31 [facility] 09/24 13:37 Order name: EKG - Nurse/Tech; Complete Time: 17:00 [facility] 09/24 13:37 Order name: IV Saline Lock; Complete Time: 17:00 [facility] 09/24 13:37 Order name: Labs collected and sent; Complete Time: 17:00 [facility] 09/24 13:37 Order name: O2 Per Protocol; Complete Time: 16:31 [facility] 09/24 13:37 Order name: O2 Sat Monitoring; Complete Time: 16:31 [facility] EC:55 Rate is 86 beats/min. Rhythm is regular. QRS [place] is Normal. [place] interval is normal. QRS aliza interval is normal. QT interval is normal. No Q waves. T waves are Normal. No ST changes noted. Clinical impression: Normal ECG and No evidence of ischemia. Interpreted by me. Reviewed by me. Administered Medications: 17:42 Discontinued: ns 0.9% 1000 ml IV at 1000 ml once; to be given as a bolus over 60 minutescha 17:41 Drug: foLIC Acid IVPB 1 mg IVPB once Route: IVPB; Site: right forearm; ld1 19:05 Follow up: Response: No adverse reaction al5 20:23 Follow up: Response: No adverse reaction; IV Status: Completed infusion al5 17:41 Drug: NS 0.9% IV 1000 ml IV at 1000 ml once; to be given as a bolus over 60 minutes ld1 Route: IV; Rate: 1000 ml; Site: right forearm; 19:05 Follow up: Response: No adverse reaction; IV Status: Completed infusion; IV Intake: al5 1000ml 18:19 Drug: ERYTHromycin Ophthalmic Ointment 1 application Ophthalmic once Route: Ophthalmic; ko1 Site: both eyes; 19:20 Follow up: Response: No adverse reaction 1 19:01 Drug: NS 0.9% IV (30 ml/kg) 30 ml/kg IV at bolus once; Sepsis Protocol; to be given as ko1 a bolus over 90 minutes Route: IV; Rate: bolus; Site: right upper arm; 21:40 Follow up: Response: No adverse reaction; IV Status: Infusion continued upon admission ha1 20:26 Drug: Meropenem IV 1 grams IV at per protocol once; (mix in NS 100 mL) Route: IV; Rate: al5 per protocol; Site: left upper arm; 21:20 Follow up: Response: No adverse reaction; IV Status: Completed infusion; IV Intake: ha1 100ml Disposition Summary: 09/24/24 18:04 Hospitalization Ordered Notes: Hospitalization Status: Inpatient Admission aliza Provider: Domingo Morrow cha [facility] Condition: Fair aliza Problem: new aliza Symptoms: have improved aliza Bed/Room Type: Standard [facility] Room Assignment: 229(09/24/24 19:58) hw Diagnosis - Weakness aliza - Unspecified acute conjunctivitis, bilateral aliza - Acute cystitis with hematuria aliza - Acute kidney failure, unspecified - on chronic aliza - Elevated white blood cell count aliza - Hypokalemia aliza - Pyelonephritis acute - LEFT aliza Forms: - Medication Reconciliation Form aliza - SBAR form aliza - Leadership Thank You Letter aliza Signatures: Dispatcher [employer] EDMS Martin Thomas MD MD cha Attema, Lee, LICENSED MASS REAL ESTATE APPRAISER-C LICENSED MASS REAL ESTATE APPRAISER-Cla1 Morales Acevedo, RN RN bp Nessa Carroll RN RN ld1 Jami Mehta RN RN ko1 Carla Lundberg RN RN al5 Jewell Finley Lucy Pringle RN ha1 Corrections: (The following items were deleted from the chart) 13:37 13:37 Chest Single View+RAD.RAD.BRZ ordered. EDMS EDMS 13:38 13:38 Head Brain Wo Cont+CT.RAD.BRZ ordered. EDMS EDMS 13:38 13:38 Head Angio+CT.RAD.BRZ ordered. EDMS EDMS 13:38 13:38 Neck Angio+CT.RAD.BRZ ordered. EDMS EDMS 19:58 18:04 aliza hw
[2024-09-24] MEDS ORDERED: NA CHLORIDE 0.9% 2,000 ML ONE (18:11)
[2024-09-24] MEDS ORDERED: Meropenem 500 MG VIAL IV ONE (18:11)
[2024-09-24] MEDS ORDERED: NA CHLORIDE 0.9% 100 ML ONE (18:12)
--- NOTE | 2024-09-24 18:13 | RAD REPORT ---
EXAMINATION: CT HEAD WITHOUT CONTRAST CLINICAL INDICATION: Female, 63 years old.MENTAL STATUS CHANGE TECHNIQUE: Axial CT images from the skull base to the vertex without intravenous contrast. Coronal an d sagittal reformatted images were created from the data set. One or more of the following dose reduction techniques were used: Automated exposure control, adjustment of the mA and/or kV according to patient size, and/or iterative reconstruction. Unless otherwise specified, incidental findings do not require dedicated imaging follow-up. [id number]. COMPARISON: 09/05/2023 FINDINGS: INTRACRANIAL: Cortical hypoattenuation in the left occipital lobe could reflect an age-indeterminate cortical infarct. This is new since 08/09/2023. No hydrocephalus. No mass effect or midline shift. Mild chronic small vessel ischemic changes.No acute intracranial hemorrhage. VASCULATURE: No visualized abnormalities in the arteries or dural venous sinuses. SCALP/SKULL: No significant soft tissue or osseous abnormalities. SINUSES: The visualized paranasal sinuses and mastoid air cells are predominantly clear. IMPRESSION: No definite acute intracranial abnormality. Age indeterminant left occipital lobe infarct. The patien t had a left COUNTER CUTTER occlusion on the CTA from 09/05/2023. It is probably remote.
[2024-09-24] MEDS ORDERED: ERYTHROMYCIN 3.5GM OPTH OINT ONE (18:14)
[2024-09-24] MEDS ORDERED: GENTAMICIN 0.3% OPTH DROP 5ML ONE (18:19)
--- NOTE | 2024-09-24 18:23 | RAD REPORT ---
EXAM: CT CHEST, ABDOMEN AND PELVIS WITHOUT CONTRAST CLINICAL INDICATION: Female, 63 years old Congestion;Fever;Pain TECHNIQUE: CT chest, abdomen and pelvis was performed, without IV contrast, as per department protoco l. Axial, sagittal and coronal reconstructions were obtained. One or more of the following dose reduction techniques were used: Automated exposure control, adjustment of the mA and/or kV according to the patient size, and/or iterative reconstruction. Unless otherwise specified, incidental findings do not require dedicated imaging follow-up. [id number]. COMPARISON: 08/25/[address] FINDINGS: The lack of intravenous contrast limits the sensitivity of this exam for evaluation of solid visceral organs, vascular structures, and retroperitoneum. Chest: LOWER NECK: Visualized thyroid gland and soft tissues are normal. Loop recorder in the left anterior chest wall. LUNGS AND AIRWAYS: Airways are clear. No evidence of airspace or interstitial process.A few scattered sub-4 mm pulmonary pulmonary nodules are seen bilaterally. These are unchanged from prior and likely benign. No routine follow-up in either low or high risk patients.Note: These guidelines do not apply to patients younger than 35 years, immunocompromised patients, and patients with cancer. Follow-up in patients with significant comorbidities as clinically warranted. For lung cancer screeni ng, adhere to Lung-RADS guidelines. Reference: Radiology. 2017 Mar; 284(1):228-243 PLEURA: No pleural effusion. No pneumothorax. Hemidiaphragms are normally positioned. MEDIASTINUM AND LYMPH NODES: No mediastinal mass or fluid collection. Normal size mediastinal, hilar, and axillary lymph nodes. Mild distal esophageal thickening. THORACIC AORTA: No thoracic aortic aneurysm. PULMONARY ARTERIES: Caliber is within normal limits. HEART: Normal heart size. No coronary calcifications.Trace pericardial effusion. Abdomen/Pelvis UPPER GI: No significant abnormality. LIVER: Hepatic steatosis. Benign appearing and/or stable lesions are identified. The lesions present on the CT from 08/25/2023. GALLBLADDER/BILE DUCTS: No biliary ductal dilatation.? PANCREAS: No mass, ductal dilation, or agustin-pancreatic fluid. SPLEEN: Unremarkable. ADRENALS: No adrenal masses. KIDNEYS AND URETERS: New left-sided perinephric stranding. Left periureteric stranding is also presen t. No ureteral calculi. Enlarging left upper pole renal lesion measuring 4.7 cm, previously 3.5 cm. This also has increased density. It may represent a cyst which has undergone interval hemorrhage but further evaluation with renal protocol CT or MRI is recommended. Other renal lesions noted which are likely cysts. ABDOMINAL AORTA AND OTHER VESSELS: Moderate atherosclerotic changes without aortic aneurysm. PERITONEUM: No abnormal free fluid. No free air. LYMPH NODES: No pathologic lymphadenopathy. ABDOMINAL WALL: Unremarkable SMALL BOWEL/COLON: Small bowel has normal course and caliber. No colonic wall thickening or pericolon ic inflammatory changes.Normal appendix. Moderate diverticulosis without diverticulitis. URINARY BLADDER: Underdistended but grossly unremarkable. REPRODUCTIVE ORGANS: No pathologic process. MUSCULOSKELETAL: No acute or suspicious osseous abnormality. ADDITIONAL FINDINGS: None. IMPRESSION: 1. New left-sided perinephric and periureteric stranding may reflect infection/pyelonephritis. No hyd ronephrosis. 2. A previously noted left upper pole cyst/cystic lesion has increased in size and now has increased attenuation. This could represent a cyst which under went interval hemorrhage, a superinfected cyst, or possibly enlarging solid neoplasm. Further evaluation with renal protocol CT or MRI is recom mended for further evaluation. 3. No acute findings in the chest.
[2024-09-24 19:41] LABS: SARS-CoV-2 Antigen CONTROL BLUE LINE VIS/BG OK; SARS-CoV-2 Antigen Rapid Res Negative (Negative)
[2024-09-24] MEDS ORDERED: ONDANSETRON 4 MG/2 ML VIAL IV PRN (19:47)
--- NOTE | 2024-09-24 19:48 | P.HP ---
Certification for Inpatient Patient admitted to: Inpatient With expected LOS: >2 Midnights Practitioner: I am a practitioner with admitting privileges, knowledge of patient current condition, hospital course, and medical plan of care. Services: Services provided to patient in accordance with Admission requirements found in Title 42 Section 412.3 of the Code of Federal Regulations Patient History Date of Service: 09/24/24 Reason for admission: AMS History of Present Illness: 63 yrs old Female with past medical history of hypertension, prediabetes, anxiety, history of CVA, history of atrial fibrillation came to ER with altered mental status. Patient is altered hence most of the history is obtained from the chart review and also talking to the daughter at the bedside. As per her the patient has been recuperating in SNF after having a stroke . The patient was in the process of transferring to assisted living. Patient also has a history of conjunctivitis. Both eyes. Denies any fever or chills. No nausea vomiting or diarrhea. Patient was assessed in the ER and was admitted for further management of acute encephalopathy. CT head was negative for any acute changes Awaiting UA Allergies No Known Allergies Allergy (Verified 09/24/24 22:50) Home medications list reviewed: Yes Home Medications: Escitalopram [Lexapro*] 20 mg PO DAILY 08/22/23 carvediloL [Coreg] 25 mg PO BID 08/22/23 ARIPiprazole [Aripiprazole] 5 mg PO BEDTIME 09/24/24 Atorvastatin Calcium [Lipitor] 80 mg PO BEDTIME 09/24/24 Carboxymethylcellulose Sodium [Artificial Tears] 15 ml OP Q8HP PRN 09/24/24 Hydralazine HCl 50 mg PO TID 09/24/24 Ketoconazole 120 ml TP SEECOM 09/24/24 buPROPion HCL [Bupropion Xl] 150 mg PO DAILY 09/24/24 - Past Medical/Surgical History Diabetic: No Past Medical History: Reviewed- Non-Contributory -: anxiety -: atrial fibrillation -: hypertension -: COPD Past Surgical History: Reviewed- Non-Contributory -: -: L cataract surgery Psychosocial/ Personal History: Lives at home with her Son - Social History Smoking Status: Never smoker Alcohol use: No CD- Drugs: No Caffeine use: Yes Review of Systems is unable to be obtained Physical Examination - Vital Signs Temperature: 98 F Blood Pressure: 106/58 Pulse: 82 Respirations: 16 Pulse Ox (%): 94 - Physical Exam General: Mild distress, Confused HEENT: Atraumatic, Normocephalic, Abnormal EOM Neck: Supple Respiratory: Clear to auscultation bilaterally, Normal air movement Cardiovascular: Regular rate/rhythm, Normal S1 S2, No murmurs Capillary refill: <2 Seconds Gastrointestinal: Soft and benign, W/out hepatosplenomegaly Musculoskeletal: No clubbing, No swelling Integumentary: No rashes, No significant lesion, No tenderness/swelling Neurological: Abnormal speech, Abnormal strength, Abnormal sensation Lymphatics: No axilla or inguinal lymphadenopathy - Studies Laboratory Data (last 24 hrs) 09/24/24 09/24/24 09/24/24 16:55 16:55 16:55 WBC 16.80 H Hgb 11.8 L Hct 35.8 L Plt Count 125 L PT 12.4 INR 1.18 Sodium 132 L Potassium 3.4 L BUN 53 H Creatinine 2.57 H Glucose 144 H Magnesium 2.7 H Total Bilirubin 0.5 AST 37 ALT 23 Alkaline Phosphatase 60 Lipase 37 Microbiology Data (last 24 hrs): 09/24/24 18:49 Nasopharnyx Influenza Type A Antigen Screen - Final 09/24/24 18:49 Nasopharnyx Influenza Type B Antigen Screen - Final Assessment and Plan - Plan Acute metabolic encephalopathy Monitor neuro vital signs UTI We will get a UA and urine culture Start on antibiotic empirically Change antibiotic as per sensitivity History of CVA/TIA No focal weakness Started on aspirin and statin CT findings noted MRI brain ordered Will consult neurology Hypertension Antihypertensives titrated Continue home medications and titrate as needed Hyperlipidemia Continue statin Acute kidney injury on CKD stage II Monitor renal parameters Electrolytes monitor and replace accordingly Hyponatremia Hypokalemia Electrolytes monitor and replace accordingly bradycardia GI/DVT prophylaxis Advanced directive full code Discharge Plan: Home Plan to discharge in: 48 Hours - Advance Directives Does patient have a Living Will: No Does patient have a Durable POA for Healthcare: No - Code Status/Comfort Care Code Status: Full Code Time Spent Managing Pts Care (In Minutes): 48
[2024-09-24] MEDS: NA CHLORIDE 0.9% 1,000 ML IV SCH (22:28)
[2024-09-24 23:15] VITALS: BMI 34.1
[2024-09-24] MEDS: POTASSIUM CL SA 10 MEQ TAB PO ONE (23:22)
[2024-09-25 04:56] LABS: Absolute Lymphocytes (CBC) 0.9 K/uL (0.7-4.9); Absolute Monocytes 1.3 K/uL (0.1-1.3); Absolute Neutrophil 13.2 K/uL (1.8-8.0); Basophils % 0.1 % (0-1.3); Eosinophils % 0.1 % (0-4.4); Hematocrit 35.3 % (36.0-45.0); Hemoglobin 11.6 g/dL (12.0-15.0); MCH 29.5 pg (27.0-35.0); MCHC 32.9 g/dL (32.0-36.0); MCV 89.7 fL (80-100); MPV 12.2 fL (7.6-11.3); Monocytes % 8.2 % (3.3-12.3); Neutrophils % 85.6 % (41.7-73.7); Nucleated RBC Absolute Count 0.1 (0-0); Nucleated Red Blood Cells % 0.3 % (0-0); Platelets 114 thou/uL (152-406); RBC Red Blood Cell Count 3.93 M/uL (3.86-4.86); Red Cell Distribution Width 14.4 % (12.1-15.2)
[2024-09-25 05:06] LABS: Albumin 2.5 g/dL (3.4-5.0); Albumin/Globulin Ratio 0.6 (1.1-1.8); Anion Gap 14.5 mEq/L (5.0-15.0); Bilirubin Total 0.4 mg/dL (0.2-1.0); Globulin 4.2 g/dL (2.3-3.5); Potassium 3.5 mEq/L (3.5-5.1); Protein, Total 6.7 g/dL (6.4-8.2)
[2024-09-25 05:20] LABS: Blood Morphology Comment NOT SEEN (NOT SEEN); Platelet Estimate DECR; White Blood Cell Scan OK (OK)
[2024-09-25] MEDS ORDERED: TOBRADEX 0.3-0.1% OPTH SUSP EACH EYE SCH (09:00)
[2024-09-25] MEDS: POTASSIUM CL SA 10 MEQ TAB PO ONE (09:14)
[2024-09-25] MEDS: ENOXAPARIN 30 MG/0.3 ML SQ SCH (09:14)
[2024-09-25] MEDS: CEFTRIAXONE 1,000 MG in NA CHLORIDE 0.9% 50 ML IVPB SCH (09:15)
[2024-09-25] MEDS: DIPHENOX/ATROP SULF 1 TAB PO ONE (13:37)
--- NOTE | 2024-09-25 18:06 | P.PN ---
Subjective Date of Service: 09/25/24 Chief Complaint: AMS Subjective: No new changes Review of Systems 10-point ROS is otherwise unremarkable General: Weakness Eyes: Other (copious discharge) ENT: Unremarkable Respiratory: Unremarkable Cardiovascular: Unremarkable Gastrointestinal: Unremarkable Genitourinary: Unremarkable Musculoskeletal: Unremarkable Integumentary: Unremarkable Neurological: Weakness, Confusion, Other Lymphatics: Unremarkable Physical Examination - Vital Signs Temperature: 98.6 F Blood Pressure: 130/55 Pulse: 86 Respirations: 23 Pulse Ox (%): 94 - Physical Exam General: Disheveled, Demented, Confused, Obese HEENT: Atraumatic, Normocephalic, Other (eyes sealed shut with mucoid discharge bilaterally) Neck: Supple Respiratory: Normal air movement Cardiovascular: Normal pulses Capillary refill: <2 Seconds Gastrointestinal: Normal bowel sounds, Soft and benign Musculoskeletal: Other (severe debility) Integumentary: No rashes Neurological: Abnormal strength, Abnormal tone, Abnormal affect, Dementia Lymphatics: No axilla or inguinal lymphadenopathy External genitalia: Deferred Rectal: Deferred - Studies Microbiology Data (last 24 hrs): 09/24/24 18:49 Nasopharnyx Influenza Type A Antigen Screen - Final 09/24/24 18:49 Nasopharnyx Influenza Type B Antigen Screen - Final Assessment And Plan - Plan Assessment and Plan Acute metabolic encephalopathy Monitor neuro vital signs UTI We will get a UA and urine culture Start on antibiotic empirically Change antibiotic as per sensitivity History of CVA/TIA No focal weakness Started on aspirin and statin CT findings noted MRI brain ordered Will consult neurology Hypertension Antihypertensives titrated Continue home medications and titrate as needed Hyperlipidemia Continue statin Acute kidney injury on CKD stage II Monitor renal parameters Electrolytes monitor and replace accordingly Hyponatremia Hypokalemia Electrolytes monitor and replace accordingly bradycardia GI/DVT prophylaxis Advanced directive full code Severe debility, needs eval for IPR Discharge Plan: Home Plan to discharge in: 48 Hours - Advance Directives Does patient have a Living Will: No Does patient have a Durable POA for Healthcare: No - Code Status/Comfort Care Code Status: Full Code Plan to discharge in: Greater than 2 days
[2024-09-25] MEDS: TOBRAMYCIN 0.3% 5ML OPTH DROPS OPTH SCH (21:00)
[2024-09-25] MEDS: ACETAMINOPHEN 325 MG TABLET PO PRN (22:15)
[2024-09-26 03:26] LABS: Specific Gravity 1.009 (1.005-1.030); Sqamous Epithelial <5 /HPF (None Seen); Urine Bacteria <20 /HPF (<20); Urine Bilirubin NEGATIVE (Negative); Urine Blood 1+ (Negative); Urine Clarity Turbid (Clear); Urine Color Light-Yellow (Yellow); Urine Culture Reflex Order NOT NEEDED; Urine Glucose NEGATIVE (Negative); Urine Ketones NEGATIVE (Negative); Urine Microscopic Reflex YN ORDER UMIC; Urine Nitrite NEGATIVE (Negative); Urine Protein TRACE (Negative); Urine RBC <5 /HPF (None Seen); Urine Urobilinogen Normal (Normal); Urine pH 5.5 (5.0-7.0)
[2024-09-26] MEDS: LORazepam 2 MG/ML VIAL IV ONE ×2 (04:49→12:00)
[2024-09-26 05:34] LABS: Anion Gap 9.4 mEq/L (5.0-15.0); Potassium 3.4 mEq/L (3.5-5.1)
[2024-09-26 05:35] LABS: Magnesium 2.2 mg/dL (1.6-2.4)
[2024-09-26] MEDS: POTASSIUM 25 MEQ EFFERV TAB PO ONE (07:59)
[2024-09-26] MEDS: POTASS/SODIUM PHOSPHATE 1 PKT POWD.PACK PO SCH (07:59)
[2024-09-26] MEDS ORDERED: CARBOXYMETHYLCELLULOSE SODIUM 0.5% 15 ML OPTH PRN (08:34)
[2024-09-26] MEDS ORDERED: HYDRALAZINE HCL 25 MG TABLET PO PRN (08:34)
[2024-09-26] MEDS ORDERED: ESCITALOPRAM 20 MG TAB PO SCH (09:00)
[2024-09-26] MEDS ORDERED: BUPROPION HCL XL 150 MG TAB PO SCH (09:00)
[2024-09-26] MEDS: TOBRAMYCIN 0.3% 5ML OPTH DROPS OPTH SCH (09:15)
[2024-09-26] MEDS: carvediloL 25 MG TAB PO SCH (09:16)
[2024-09-26] MEDS: ESCITALOPRAM 20 MG TAB PO SCH (09:20)
[2024-09-26] MEDS: BUPROPION HCL XL 150 MG TAB PO SCH (09:47)
[2024-09-26] MEDS: LOPERAMIDE HCL 2 MG CAPSULE PO PRN (09:51)
--- NOTE | 2024-09-26 12:30 | RAD REPORT ---
EXAMINATION: MRI BRAIN WITHOUT CONTRAST CLINICAL INDICATION: CVA TECHNIQUE: Multiplanar multisequence MR images of the brain were obtained without intravenous contras t. Unless otherwise specified, incidental findings do not require dedicated imaging follow-up. COMPARISON: 09/24/2024 FINDINGS: INTRACRANIAL: Diffusion-weighted images show no acute or early subacute infarction. There is mild bra in atrophy with mildT2/FLAIR hyperintensities in the periventricular and deep white matter regions, likely representing chronic microvascular ischemic changes. There is no mass effect or midline shift. No abnormal extraaxial fluid collection. Old infarction suspected medial left occipital lobe. VASCULATURE: Normal signal voids in the larger intracranial arteries and dural venous sinuses. SINUSES: The paranasal sinuses and mastoid air cells are predominantly clear. BONE: The marrow signal pattern is within normal limits. IMPRESSION: Negative for acutre CVA or other acute intracranial finding.
[2024-09-26] MEDS: ATORVASTATIN 80 MG TAB PO SCH (20:20)
[2024-09-26] MEDS: ARIPiprazole 5 MG TAB PO SCH (20:20)
[2024-09-27 04:40] LABS: Anion Gap 10.5 mEq/L (5.0-15.0); Phosphorus 2.5 mg/dL (2.5-4.9); Potassium 3.5 mEq/L (3.5-5.1)
--- NOTE | 2024-09-27 08:36 | P.PN ---
Date of Service: 09/26/24 Subjective Daughter at bedside, she reports patient has been off her depression, psych meds Review of Systems 10-point ROS is otherwise unremarkable Physical Examination - Vital Signs Reviewed - Physical Exam General: Disheveled, Demented, Confused, Obese HEENT: Atraumatic, Normocephalic, Other (eyes sealed shut with mucoid discharge bilaterally) Neck: Supple Respiratory: Normal air movement Cardiovascular: Normal pulses Capillary refill: <2 Seconds Gastrointestinal: Normal bowel sounds, Soft and benign Musculoskeletal: Other moderate generalized weakness Integumentary: No rashes Neurological: Abnormal strength, Abnormal tone, Abnormal affect, Dementia Lymphatics: No axilla or inguinal lymphadenopathy Assessment and Plan Acute metabolic encephalopathy likely secondary from acute cystitis Monitor neuro vital signs Acute cystitis UTI We will get a UA and urine culture Start on antibiotic empirically Change antibiotic as per sensitivity Flu AB-, blood cultures negative, UA Bilateral conjunctivitis Currently on antibiotic eyedrop Depression Anxiety History of CVA/TIA No focal weakness Started on aspirin and statin CT findings noted MRI brain Negative for acutre CVA or other acute intracranial finding. Will consult neurology. Resume home meds PT eval Hypertension Antihypertensives titrated Continue home medications and titrate as needed Hyperlipidemia Continue statin Acute kidney injury on CKD stage II Monitor renal parameters Electrolytes monitor and replace accordingly Hyponatremia Hypokalemia Electrolytes monitor and replace accordingly bradycardia GI/DVT prophylaxis Advanced directive full code Severe debility, needs eval for IPR Discharge Plan: Home Plan to discharge in: 48 Hours - Advance Directives Does patient have a Living Will: No Does patient have a Durable POA for Healthcare: No - Code Status/Comfort Care Code Status: Full Code Time with patient 30 minutes Plan to discharge in: Greater than 2 days
[2024-09-27] MEDS: CEFEPIME 2 GM in NA CHLORIDE 0.9% 100 ML IV SCH (10:05)
[2024-09-27] MEDS: POTASSIUM CL SA 10 MEQ TAB PO ONE (10:08)
[2024-09-27] MEDS: OFLOXACIN OPH 0.3%-10 ML BTL OPTH SCH (12:30)
--- NOTE | 2024-09-27 14:09 | P.PN ---
Date of Service: 09/27/24 Subjective PT/OT eval, SNF for Discharge planning Review of Systems 10-point ROS is otherwise unremarkable Physical Examination - Vital Signs Reviewed - Physical Exam General: Alert and oriented x 2, afebrile HEENT: Atraumatic, Normocephalic, Other (eyes sealed shut with mucoid discharge bilaterally) Neck: Supple Respiratory: Normal air movement, equal, unlabored Cardiovascular: Normal pulses Capillary refill: <2 Seconds Gastrointestinal: Normal bowel sounds, Soft and benign Musculoskeletal: Other moderate generalized weakness Integumentary: No rashes Neurological: Abnormal strength, Abnormal tone, Abnormal affect, Dementia Lymphatics: No axilla or inguinal lymphadenopathy Assessment and Plan Acute metabolic encephalopathy likely secondary from acute cystitis Monitor neuro vital signs Acute cystitis UTI We will get a UA and urine culture Start on antibiotic empirically Change antibiotic as per sensitivity Flu AB-, blood cultures negative, UA Bilateral conjunctivitis Currently on antibiotic eyedrop Tobramycin ophthalmic, changed to oxifloxacin ii drops QID for 2 days Depression Anxiety History of CVA/TIA No focal weakness Started on aspirin and statin CT findings noted MRI brain Negative for acutre CVA or other acute intracranial finding. Will consult neurology. Resume home meds PT eval Hypertension Antihypertensives titrated Continue home medications and titrate as needed Hyperlipidemia Continue statin Acute kidney injury on CKD stage II Monitor renal parameters Electrolytes monitor and replace accordingly Hyponatremia Hypokalemia Electrolytes monitor and replace accordingly bradycardia GI/DVT prophylaxis Advanced directive full code Severe debility, needs eval for IPR Discharge Plan: Home Plan to discharge in: 48 Hours - Advance Directives Does patient have a Living Will: No Does patient have a Durable POA for Healthcare: No - Code Status/Comfort Care Code Status: Full Code Time with patient 30 minutes Plan to discharge in: Greater than 2 days
[2024-09-28 05:38] LABS: Anion Gap 11.4 mEq/L (5.0-15.0); Potassium 3.4 mEq/L (3.5-5.1)
[2024-09-28] MEDS ORDERED: POTASSIUM 25 MEQ EFFERV TAB PO ONE (08:00)
[2024-09-28] MEDS: POTASSIUM CL SA 10 MEQ TAB PO ONE (10:01)
[2024-09-28] MEDS: Mupirocin NASAL 2 APPL/1 GM TUBE NAS SCH (21:50)
[2024-09-29 05:53] LABS: Absolute Eosinophils 0.1 K/uL (0-0.5); Absolute Lymphocytes (CBC) 1.4 K/uL (0.7-4.9); Absolute Monocytes 1.2 K/uL (0.1-1.3); Absolute Neutrophil 8.3 K/uL (1.8-8.0); Basophils % 0.4 % (0-1.3); Eosinophils % 1.2 % (0-4.4); Hematocrit 31.2 % (36.0-45.0); Hemoglobin 10.4 g/dL (12.0-15.0); Lymphocytes % 12.7 % (15.3-44.8); MCH 29.7 pg (27.0-35.0); MCHC 33.3 g/dL (32.0-36.0); MCV 89.2 fL (80-100); Monocytes % 10.9 % (3.3-12.3); Neutrophils % 74.8 % (41.7-73.7); Nucleated Red Blood Cells % 0.1 % (0-0); Platelets 215 thou/uL (152-406); Red Cell Distribution Width 14.7 % (12.1-15.2)
[2024-09-29 06:18] LABS: Albumin 2.1 g/dL (3.4-5.0); Albumin/Globulin Ratio 0.5 (1.1-1.8); Anion Gap 9.5 mEq/L (5.0-15.0); Bilirubin Total 0.5 mg/dL (0.2-1.0); Globulin 4.1 g/dL (2.3-3.5); Magnesium 1.7 mg/dL (1.6-2.4); Potassium 3.5 mEq/L (3.5-5.1); Protein, Total 6.2 g/dL (6.4-8.2)
--- NOTE | 2024-09-29 06:38 | P.PN ---
Date of Service: 09/28/24 Subjective Plan to DC home SNF for IV ABX, Review of Systems 10-point ROS is otherwise unremarkable Physical Examination - Vital Signs Reviewed - Physical Exam General: Alert and oriented x 2, afebrile HEENT: Atraumatic, Normocephalic, Other B) conjunctivitis improving, Neck: Supple Respiratory: Normal air movement, equal, unlabored Cardiovascular: Normal pulses Capillary refill: <2 Seconds Gastrointestinal: Normal bowel sounds, Soft and benign Musculoskeletal: Other moderate generalized weakness Integumentary: No rashes Neurological: Abnormal strength, Abnormal tone, Abnormal affect, Dementia Lymphatics: No axilla or inguinal lymphadenopathy Assessment and Plan Acute metabolic encephalopathy likely secondary from acute cystitis Acute cystitis UTI We will get a UA and Start on antibiotic was on ceftriaxone, increased to cefepime for leukocytosis Urine culture E. coli 4+ gram-negative vitaly Flu AB-, blood cultures negative, UA Monitor neuro vital signs Bilateral conjunctivitis Leukocytosis likely secondary to acute cystitis and bilateral conjunctivitis, Currently on antibiotic eyedrop Tobramycin ophthalmic, changed to oxifloxacin ii drops Procalcitonin ordered Depression Anxiety History of CVA/TIA No focal weakness Started on aspirin and statin CT findings noted MRI brain Negative for acutre CVA or other acute intracranial finding. Will consult neurology. Resume home meds PT eval Hypertension Antihypertensives titrated Continue home medications and titrate as needed Hyperlipidemia Continue statin Acute kidney injury on CKD stage II Monitor renal parameters Electrolytes monitor and replace accordingly Hyponatremia Hypokalemia Electrolytes monitor and replace accordingly bradycardia GI/DVT prophylaxis Advanced directive full code Severe debility, needs eval for IPR Discharge Plan: Home Plan to discharge in: 48 Hours - Advance Directives Does patient have a Living Will: No Does patient have a Durable POA for Healthcare: No - Code Status/Comfort Care Code Status: Full Code Time with patient 30 minutes Plan to discharge in: Greater than 2 days
--- NOTE | 2024-09-29 06:44 | P.DS ---
Admission Date: 09/24/24 Discharge Date: 10/01/24 Disposition: TRANSFER TO CUSTODIAL Discharge Condition: GOOD Reason for Admission: AMS Brief History of Present Illness: 63 yrs old Female with past medical history of hypertension, prediabetes, anxiety, history of CVA, history of atrial fibrillation came to ER with altered mental status. Patient is altered hence most of the history is obtained from the chart review and also talking to the daughter at the bedside. As per her the patient has been recuperating in SNF after having a stroke . The patient was in the process of transferring to assisted living. Patient also has a history of conjunctivitis. Both eyes. Denies any fever or chills. No nausea vomiting or diarrhea.. Patient was assessed in the ER and was admitted for further management of acute encephalopathy. CT head was negative for any acute changes she was admitted for metabolic encephalopathy, acute cystitis, bilateral linda conjunctivitis, - Physical Exam General: Alert and oriented x 3, forgetfull HEENT: Atraumatic, Normocephalic, Abnormal EOM Neck: Supple Respiratory: Clear to auscultation bilaterally, Normal air movement Cardiovascular: Regular rate/rhythm, Normal S1 S2, No murmurs Capillary refill: <2 Seconds Gastrointestinal: Soft and benign, W/out hepatosplenomegaly Musculoskeletal: No clubbing, No swelling Integumentary: No rashes, No significant lesion, No tenderness/swelling Neurological: Alert and oriented x 3, no focal deficits Lymphatics: No axilla or inguinal lymphadenopathy Hospital Course: 63 yrs old Female with past medical history of hypertension, prediabetes, anxiety, history of CVA, history of atrial fibrillation came to ER with altered mental status. Patient is altered hence most of the history is obtained from the chart review and also talking to the daughter at the bedside. As per her the patient has been recuperating in SNF after having a stroke . The patient was in the process of transferring to assisted living. Patient also has a history of conjunctivitis. Both eyes. Denies any fever or chills. No nausea vomiting or diarrhea.. Patient was assessed in the ER and was admitted for further management of acute encephalopathy. CT head was negative for any acute changes she was admitted for metabolic encephalopathy, acute cystitis, bilateral linda conjunctivitis, improved with IV antibiotics, plan to discharge to residential facility for discharge planning Assessment Acute metabolic encephalopathy likely secondary from acute cystitis-discharge home on IV cefepime 2 g twice daily for 5 days Acute cystitis UTI Urine culture E. coli 4+ gram-negative vitaly discharged home on Cipro Flu AB-, blood cultures negative, UA Monitor neuro vital signs Bilateral conjunctivitis improved Leukocytosis likely secondary to acute cystitis and bilateral conjunctivitis,- improving Currently on antibiotic eyedrop Tobramycin ophthalmic, changed to oxifloxacin ii drops Procalcitonin ordered Depression Anxiety History of CVA/TIA CT findings noted MRI brain Negative for acutre CVA or other acute intracranial finding. Resume home meds, PT eval while inpatient Hypertension Hyperlipidemia Continue home medications Hyperlipidemia Continue statin Acute kidney injury on CKD stage II Hyponatremia Hypokalemia Electrolytes replaced while GOAL: Clear understanding of disease process INSTRUCTIONS: Physician Discharge Instructions: -Follow-up with PCP in 1 to 2 weeks -Please call Dr. Penny at [phone] if any questions regarding hospital stay -Please call nursing station at [phone] if any nursing or medication questions -Return to the emergency room if symptoms worsen Diet: ADA, low sodium Activity: Fall precautions Vital Signs/Physical Exam: Temp Pulse Resp BP Pulse Ox 98.8 F 80 18 160/69 H 94 09/29/24 04:00 09/29/24 04:00 09/29/24 04:00 09/29/24 04:00 09/29/24 04:00 Laboratory Data at Discharge: WBC 11.10 thou/uL (4.3-10.9) H 09/29/24 05:37 Hgb 10.4 g/dL (12.0-15.0) L 09/29/24 05:37 Hct 31.2 % (36.0-45.0) L 09/29/24 05:37 Plt Count 215 thou/uL (152-406) 09/29/24 05:37 PT 12.4 SECONDS (9.4-12.5) 09/24/24 16:55 INR 1.18 09/24/24 16:55 Sodium 136 mEq/L (136-145) 09/29/24 05:37 Potassium 3.5 mEq/L (3.5-5.1) 09/29/24 05:37 BUN 10 mg/dL (7-18) 09/29/24 05:37 Creatinine 0.78 mg/dL (0.55-1.02) 09/29/24 05:37 Glucose 148 mg/dL (74-106) H 09/29/24 05:37 Phosphorus 2.5 mg/dL (2.5-4.9) 09/27/24 04:15 Magnesium 1.7 mg/dL (1.6-2.4) 09/29/24 05:37 Total Bilirubin 0.5 mg/dL (0.2-1.0) 09/29/24 05:37 AST 38 U/L (15-37) H 09/29/24 05:37 ALT 36 U/L (13-56) 09/29/24 05:37 Alkaline Phosphatase 63 U/L (45-117) 09/29/24 05:37 Lipase 37 U/L (13-75) 09/24/24 16:55 Home Medications: Escitalopram [Lexapro*] 20 mg PO DAILY 08/22/23 carvediloL [Coreg] 25 mg PO BID 08/22/23 ARIPiprazole [Aripiprazole] 5 mg PO BEDTIME 09/24/24 Atorvastatin Calcium [Lipitor] 80 mg PO BEDTIME 09/24/24 Carboxymethylcellulose Sodium [Artificial Tears] 1 drop OP Q8HP PRN 09/24/24 Hydralazine HCl 50 mg PO TID 09/24/24 Ketoconazole 120 ml TP SEECOM 09/24/24 buPROPion HCL [Bupropion Xl] 150 mg PO DAILY 09/24/24 ARIPiprazole [Abilify*] 5 mg PO BEDTIME tab 09/29/24 Atorvastatin Calcium [Lipitor] 80 mg PO BEDTIME tab 09/29/24 Carboxymethylcellulose Sodium [Refresh Tears] 1 drops OPTH Q8HP PRN bottle 09/29/24 Losartan Potassium [Cozaar*] 50 mg PO BID 09/29/24 Ofloxacin Oph [Floxin Otic 0.3%*] 0 ml OTIC BID 7 Days #1 bottle 09/29/24 New Medications: Ofloxacin Oph [Floxin Otic 0.3%*] 0 ml OTIC BID 7 Days #1 bottle Physician Discharge Instructions: 63 yrs old Female with past medical history of hypertension, prediabetes, anxiety, history of CVA, history of atrial fibrillation came to ER with altered mental status. Patient is altered hence most of the history is obtained from the chart review and also talking to the daughter at the bedside. As per her the patient has been recuperating in SNF after having a stroke . The patient was in the process of transferring to assisted living. Patient also has a history of conjunctivitis. Both eyes. Denies any fever or chills. No nausea vomiting or diarrhea.. Patient was assessed in the ER and was admitted for further management of acute encephalopathy. CT head was negative for any acute changes she was admitted for metabolic encephalopathy, acute cystitis, bilateral linda conjunctivitis, improved with IV antibiotics, plan to discharge to residential facility for discharge planning Assessment Acute metabolic encephalopathy likely secondary from acute cystitis-discharge IV cefepime 2 g IV twice daily for 5 days Acute cystitis UTI Urine culture E. coli 4+ gram-negative vitaly discharged home on Cipro Flu AB-, blood cultures negative, UA Monitor neuro vital signs Bilateral conjunctivitis Leukocytosis likely secondary to acute cystitis and bilateral conjunctivitis,- improving Currently on antibiotic eyedrop Tobramycin ophthalmic, changed to oxifloxacin ii drops Procalcitonin ordered Depression Anxiety History of CVA/TIA CT findings noted MRI brain Negative for acutre CVA or other acute intracranial finding. Resume home meds, PT eval while inpatient Hypertension Hyperlipidemia Continue home medications Hyperlipidemia Continue statin Acute kidney injury on CKD stage II Hyponatremia Hypokalemia Electrolytes replaced while GOAL: Clear understanding of disease process INSTRUCTIONS: Physician Discharge Instructions: -Follow-up with PCP in 1 to 2 weeks -Please call Dr. Penny at [phone] if any questions regarding hospital stay -Please call nursing station at [phone] if any nursing or medication questions -Return to the emergency room if symptoms worsen Diet: AHA Activity: Fall precautions Followup: Elli Butler MD [Primary Care Provider] - 1-2 Weeks Time spent managing pt's care (in minutes): 45
[2024-09-29] MEDS: OFLOXACIN OPH 0.3%-5 ML BTL OTIC SCH (09:00)
[2024-09-29] MEDS ORDERED: KETOCONAZOLE CREAM 15 GM TUBE TOP SCH (09:00)
[2024-09-29] MEDS: CEFEPIME 2 GM in NA CHLORIDE 0.9% 100 ML IV SCH (10:29)
[2024-09-29] MEDS: MAGNESIUM SULFATE 1 gm IVPB 1 GM/100 ML BAG IV ONE (10:29)
[2024-09-29] MEDS: ENOXAPARIN 40 MG/0.4 ML SQ SCH (10:31)
[2024-09-29] MEDS: LOSARTAN POTASSIUM 50 MG TABLET PO SCH (10:31)
[2024-09-29] MEDS: POTASSIUM CL SA 10 MEQ TAB PO ONE (10:32)
--- NOTE | 2024-09-29 13:09 | EKG ---
Test Date: 2024-09-24 Test Time: 16:51:33 [place]: KORIN MEASUREMENT RESULTS: Intervals: Rate: 86 [place]: 166 QRSD: 86 QT: 378 QTc: 452 [place]: P: 33 [place]: 166 QRS: 57 T: 49 INTERPRETIVE STATEMENTS: Normal sinus rhythm Normal ECG Compared to ECG 09/05/2023 06:08:59 ST (T wave) deviation no longer present Electronically Signed On 09-29-24 13:02:08 [employer] by Jose De Jesus Robertson
[2024-09-29] MEDS: Mupirocin NASAL 2 APPL/1 GM TUBE NAS SCH (21:00)
[2024-09-29] MEDS ORDERED: MELATONIN 5 MG TABLET PO PRN (23:43)
[2024-09-30 08:56] LABS: Absolute Basophils 0.1 K/uL (0-0.5); Absolute Eosinophils 0.1 K/uL (0-0.5); Absolute Lymphocytes (CBC) 1.2 K/uL (0.7-4.9); Absolute Monocytes 0.8 K/uL (0.1-1.3); Basophils % 0.7 % (0-1.3); Eosinophils % 0.8 % (0-4.4); Hematocrit 31.1 % (36.0-45.0); Hemoglobin 10.4 g/dL (12.0-15.0); Lymphocytes % 9.8 % (15.3-44.8); MCH 29.8 pg (27.0-35.0); MCHC 33.5 g/dL (32.0-36.0); MPV 10.9 fL (7.6-11.3); Monocytes % 6.9 % (3.3-12.3); Neutrophils % 81.8 % (41.7-73.7); Platelets 219 thou/uL (152-406); Red Cell Distribution Width 14.8 % (12.1-15.2)
[2024-09-30 09:43] LABS: Anion Gap 8.6 mEq/L (5.0-15.0); Phosphorus 2.8 mg/dL (2.5-4.9); Potassium 3.6 mEq/L (3.5-5.1)
[2024-10-01 00:41] VITALS: O2SAT 97
[2024-10-01 08:32] LABS: Albumin 2.1 g/dL (3.4-5.0); Anion Gap 7.4 mEq/L (5.0-15.0); Phosphorus 2.4 mg/dL (2.5-4.9); Potassium 3.4 mEq/L (3.5-5.1)
[2024-10-01 10:34] LABS: Absolute Eosinophils 0.1 K/uL (0-0.5); Absolute Lymphocytes (CBC) 1.1 K/uL (0.7-4.9); Absolute Monocytes 0.9 K/uL (0.1-1.3); Absolute Neutrophil 8.4 K/uL (1.8-8.0); Basophils % 0.3 % (0-1.3); Eosinophils % 1.3 % (0-4.4); Hematocrit 32.5 % (36.0-45.0); Hemoglobin 10.7 g/dL (12.0-15.0); Lymphocytes % 10.4 % (15.3-44.8); MCH 29.3 pg (27.0-35.0); MCV 88.9 fL (80-100); MPV 11.5 fL (7.6-11.3); Monocytes % 8.2 % (3.3-12.3); Neutrophils % 79.8 % (41.7-73.7); Nucleated Red Blood Cells % 0.1 % (0-0); Platelets 248 thou/uL (152-406); RBC Red Blood Cell Count 3.66 M/uL (3.86-4.86); Red Cell Distribution Width 14.9 % (12.1-15.2)
--- NOTE | 2024-10-01 12:08 | P.PN ---
Date of Service: 09/29/24 Subjective Plan to DC home SNF for IV ABX, No acute distress noted Review of Systems 10-point ROS is otherwise unremarkable Physical Examination - Vital Signs Reviewed - Physical Exam General: Alert and oriented x 2, afebrile HEENT: Atraumatic, Normocephalic, bilateral conjunctivitis improved Neck: Supple Respiratory: Normal air movement, equal, respirations unlabored Cardiovascular: Normal pulses Capillary refill: <2 Seconds Gastrointestinal: Normal bowel sounds, Soft and benign Musculoskeletal: Other moderate generalized weakness Integumentary: Dry scalp Neurological: Abnormal strength, Abnormal tone, Abnormal affect, Dementia Lymphatics: No axilla or inguinal lymphadenopathy Assessment and Plan Acute metabolic encephalopathy likely secondary from acute cystitis Acute cystitis UTI We will get a UA and Start on antibiotic was on ceftriaxone, increased to cefepime for leukocytosis Urine culture E. coli 4+ gram-negative vitaly Flu AB-, blood cultures negative, UA Monitor neuro vital signs Bilateral conjunctivitis Leukocytosis likely secondary to acute cystitis and bilateral conjunctivitis, Currently on antibiotic eyedrop Tobramycin ophthalmic, changed to oxifloxacin ii drops Procalcitonin ordered Depression Anxiety History of CVA/TIA No focal weakness Started on aspirin and statin CT findings noted MRI brain Negative for acutre CVA or other acute intracranial finding. Will consult neurology. Resume home meds PT eval Dry scalp, Ketoconazole ordered Hypertension Antihypertensives titrated Continue home medications and titrate as needed Hyperlipidemia Continue statin Acute kidney injury on CKD stage II Monitor renal parameters Electrolytes monitor and replace accordingly Hyponatremia Hypokalemia Electrolytes monitor and replace accordingly bradycardia GI/DVT prophylaxis Advanced directive full code Severe debility, needs eval for IPR Discharge Plan: Home Plan to discharge in: 48 Hours - Advance Directives Does patient have a Living Will: No Does patient have a Durable POA for Healthcare: No - Code Status/Comfort Care Code Status: Full Code Time with patient 25 minutes Plan to discharge in: Greater than 2 days
--- NOTE | 2024-10-01 12:10 | P.PN ---
Date of Service: 09/30/24 Subjective Plan to DC home SNF for IV ABX, Daughter at bedside, ambulating in hallway with physical therapy and family Review of Systems 10-point ROS is otherwise unremarkable Physical Examination - Vital Signs Reviewed - Physical Exam General: Alert and oriented x 2, no acute distress no HEENT: Atraumatic, Normocephalic, bilateral conjunctivitis improved Neck: Supple Respiratory: Normal air movement, equal, respirations unlabored Cardiovascular: Normal pulses Capillary refill: <2 Seconds Gastrointestinal: Normal bowel sounds, nontender Musculoskeletal: Other moderate generalized weakness Integumentary: Dry scalp Neurological: Abnormal strength, Abnormal tone, Abnormal affect, Dementia Assessment and Plan Acute metabolic encephalopathy likely secondary from acute cystitis Acute cystitis UTI We will get a UA and Start on antibiotic was on ceftriaxone, increased to cefepime for leukocytosis Urine culture E. coli 4+ gram-negative vitaly Flu AB-, blood cultures negative, UA Monitor neuro vital signs Bilateral conjunctivitis Leukocytosis likely secondary to acute cystitis and bilateral conjunctivitis, Currently on antibiotic eyedrop Tobramycin ophthalmic, changed to oxifloxacin ii drops Procalcitonin ordered Depression Anxiety History of CVA/TIA No focal weakness Started on aspirin and statin CT findings noted MRI brain Negative for acutre CVA or other acute intracranial finding. Will consult neurology. Resume home meds PT eval Dry scalp, Ketoconazole ordered Hypertension Antihypertensives titrated Continue home medications and titrate as needed Hyperlipidemia Continue statin Acute kidney injury on CKD stage II Monitor renal parameters Electrolytes monitor and replace accordingly Hyponatremia Hypokalemia Electrolytes monitor and replace accordingly bradycardia GI/DVT prophylaxis Advanced directive full code Severe debility, needs eval for IPR Discharge Plan: Home Plan to discharge in: 48 Hours - Advance Directives Does patient have a Living Will: No Does patient have a Durable POA for Healthcare: No - Code Status/Comfort Care Code Status: Full Code Time with patient 25 minutes Plan to discharge in: Greater than 2 days
[2024-10-01 12:12] VITALS: BP 121/74; TEMP 98.7
== END 2024-10-01 15:52 | DRG 689 ==
LOC: ER 13:16 → 2ND 19:47
PROVIDERS: ADMIT Family Medicine; ATTEND Hospitalist
PROC: 02HV33Z Insertion of Infusion Device into Superior Vena Cava, Percutaneous Approach (ICD-10-PCS; principal; 2024-09-29)
DX: N30.01 Acute cystitis with hematuria (principal); G93.41 Metabolic encephalopathy; E87.1 Hypo-osmolality and hyponatremia; N17.9 Acute kidney failure, unspecified; E87.6 Hypokalemia; E78.5 Hyperlipidemia, unspecified; I48.91 Unspecified atrial fibrillation; E66.9 Obesity, unspecified; F32.A Depression, unspecified; F41.9 Anxiety disorder, unspecified; H10.33 Unspecified acute conjunctivitis, bilateral; J44.9 Chronic obstructive pulmonary disease, unspecified; I12.9 Hypertensive chronic kidney disease with stage 1 through stage 4 chronic kidney disease, or unspecified chronic kidney disease; N18.2 Chronic kidney disease, stage 2 (mild); F03.90 Unspecified dementia, unspecified severity, without behavioral disturbance, psychotic disturbance, mood disturbance, and anxiety; B96.20 Unspecified Escherichia coli [E. coli] as the cause of diseases classified elsewhere; Z86.73 Personal history of transient ischemic attack (TIA), and cerebral infarction without residual deficits; Z98.51 Tubal ligation status; Z68.34 Body mass index [BMI] 34.0-34.9, adult; Z79.02 Long term (current) use of antithrombotics/antiplatelets; Z79.899 Other long term (current) drug therapy
CPT/HCPCS: 36415; 70450; 70551; 71045; 71250; 74176; 80048; 80053; 80069; 80076; 81001; 81003; 82947; 83605; 83690; 83735; 83880; 84100; 84132; 84145; 84484; 85025; 85610; 87040; 87077; 87086; 87088; 87186; 87804; 87811; 93005; 94760; 97116; 97161; 97165; 97530; 99285; J0692; J0696; J1650; J3475; J7030